=== PATIENT | female | born 1940 | race Caucasian/White ===

== ENCOUNTER 2019-02-14 23:37 | Emergency (ER) | payer MEDICARE, OTHER ==
[~2019-02-14] VITALS: Ht 152.4 cm; Wt 83.5 kg
[~2019-02-14 23:37] MED LIST: CHOL10002 PO; DARB200I; FEBU40TA; FISH OIL 1,2001 EACH; HYDACE5325; LEVSOD75; Lotrel 10-20 M1 EACH PO; OMEP20ER; PREG50; SODBIC650
[2019-02-14] MEDS ORDERED: OXYC5 PO (23:54)
[2019-02-14] MEDS ORDERED: Vitamin E600 UNIT PO (23:56)
[2019-02-14] MEDS ORDERED: CLON.1 PO (23:58)
[2019-02-15 00:18] LABS: Source, Urine Clean Catch
[2019-02-15 00:22] LABS: Bilirubin, Urine Neg (Neg); Blood, Urine 4+ (Neg); Glucose Qualitative, Urine Neg (Neg); Ketones, Urine Neg (Neg); Leukocyte Esterase, Urine 3+ (Neg); Nitrite, Urine Neg (Neg); Protein, Urine 3+ (Neg); Urobilinogen, Urine NORM (Normal)
[2019-02-15 00:39] LABS: Appearance, Urine Hazy (Clear); Bacteria Mod /hpf; Color, Urine Yellow (P-Yellow); Red Blood Cells, Urine Rare /hpf (0-2); Squamous Epithelial Cells Few /hpf (Few); White Blood Cells, Urine 50-100 /hpf (0-5)
[2019-02-15 00:44] LABS: BASOPHILS ABSOLUTE AUTO 0.04 K/mm3 (0.00-0.23); BASOPHILS PERCENT AUTO 0 % (0-2); EOSINOPHILS PERCENT AUTO 0 % (0-6); Hematocrit 32.2 % (33.0-51.0); Hemoglobin 10.2 g/dL (11.5-16.0); IMMATURE GRAN ABSOLUTE AUTO 0.13 K/mm3 (0.00-0.10); IMMATURE GRAN PERCENT AUTO 1 % (0-1); LYMPHOCYTES PERCENT AUTO 4 % (21-46); MONOCYTES ABSOLUTE AUTO 1.44 K/mm3 (0.16-1.47); MONOCYTES PERCENT AUTO 7 % (4-13); Mean Corpuscular HGB 29.7 pg (26.0-34.0); Mean Corpuscular HGB Conc 31.7 g/dL (31.5-36.5); Mean Corpuscular Volume 94 fL (80-100); NEUTROPHILS ABSOLUTE AUTO 17.34 K/mm3 (1.96-9.15); NEUTROPHILS PERCENT AUTO 88 % (41-73); Platelet Count 238 K/mm3 (150-400); RDW Coefficient Variation 15.9 % (11.7-14.2); RDW Standard Deviation 54.6 fL (35.1-46.3); Red Blood Cell Count 3.44 M/mm3 (3.80-5.20); White Blood Cell Count 19.65 K/mm3 (4.00-11.30)
[2019-02-15 01:02] LABS: Albumin, Blood 2.8 g/dL (3.4-5.0); Albumin/Globulin Ratio 0.7 (0.8-1.8); Bilirubin, Total 0.7 mg/dL (0.1-1.0); Bun/Creatinine Ratio 17.1 (12.0-20.0); Calcium, Blood 7.8 mg/dL (8.5-10.1); Creatinine, Blood 2.98 mg/dL (0.40-1.00); Globulin, Blood 4.2 g/dL (2.2-4.0); Potassium, Blood 4.6 mmol/L (3.5-5.5)
== END 2019-02-15 02:33 | disposition short-term general hospital (02) ==
LOC: ER 23:37
PROVIDERS: Emergency Medicine
DX: M54.5 Low back pain (principal); Z88.0 Allergy status to penicillin; Z88.2 Allergy status to sulfonamides; Z88.5 Allergy status to narcotic agent; Z88.8 Allergy status to other drugs, medicaments and biological substances; Z79.899 Other long term (current) drug therapy
CPT/HCPCS: 36415; 71046; 74176; 80053; 81001; 83605; 85025; 87040; 87086; 96374; 96375; 99284-25; J2405; J3010

== ENCOUNTER → 2019-06-21 | Outpatient (CLI) | payer MEDICARE, OTHER ==
[~2019-06-21] MED LIST changes: +ATORVASTATIN CA40 MG PO; +Bumetanide2 MG PO; +CALCIUM 600 +1 EA11 PO; -CHOL10002 PO; +CLON.1 PO; +COLCHICINE0.6 MG PO; +Calcitriol0.5 MCG PO; +GABA100 PO; +GABA300 PO; +LIDO700A20 TOP; +METPRE4DP PO; -OMEP20ER; +OMEP20ER PO; +OXYC5 PO; -SODBIC650; +SODBIC650 PO; +TUMS500 MG PO; +VITAMIN D325 MCG PO; +Vitamin E600 UNIT PO; +XARELTO10 MG PO; +XARELTO2.5 MG PO; +[UNRECOGNIZED DRUG - OTHER] PO
[2019-06-21 11:31] LABS: BASOPHILS ABSOLUTE AUTO 0.07 K/mm3 (0.00-0.23); BASOPHILS PERCENT AUTO 1 % (0-2); EOSINOPHILS ABSOLUTE AUTO 0.32 K/mm3 (0.00-0.68); EOSINOPHILS PERCENT AUTO 4 % (0-6); Hematocrit 34.6 % (33.0-51.0); Hemoglobin 10.7 g/dL (11.5-16.0); IMMATURE GRAN ABSOLUTE AUTO 0.01 K/mm3 (0.00-0.10); IMMATURE GRAN PERCENT AUTO 0 % (0-1); LYMPHOCYTES ABSOLUTE AUTO 1.77 K/mm3 (0.84-5.20); LYMPHOCYTES PERCENT AUTO 24 % (21-46); MONOCYTES ABSOLUTE AUTO 0.54 K/mm3 (0.16-1.47); MONOCYTES PERCENT AUTO 7 % (4-13); Mean Corpuscular HGB 28.5 pg (26.0-34.0); Mean Corpuscular HGB Conc 30.9 g/dL (31.5-36.5); Mean Corpuscular Volume 92 fL (80-100); Mean Platelet Volume 10.1 fL (9.1-12.4); NEUTROPHILS ABSOLUTE AUTO 4.81 K/mm3 (1.96-9.15); NEUTROPHILS PERCENT AUTO 64 % (41-73); Platelet Count 323 K/mm3 (150-400); RDW Coefficient Variation 15.2 % (11.7-14.2); RDW Standard Deviation 51.8 fL (35.1-46.3); Red Blood Cell Count 3.75 M/mm3 (3.80-5.20); White Blood Cell Count 7.52 K/mm3 (4.00-11.30)
== END ==
LOC: LAB SHORT 10:51 → LAB 10:51
PROVIDERS: Internal Medicine Hematology & Oncology
DX: N18.4 Chronic kidney disease, stage 4 (severe) (principal); D63.1 Anemia in chronic kidney disease
CPT/HCPCS: 85025

== ENCOUNTER 2019-07-04 16:46 | Inpatient (IN) | payer MEDICARE, OTHER ==
[~2019-07-04] VITALS: Ht 152.4 cm; Wt 76.7 kg
[~2019-07-04 16:46] MED LIST changes: -ATORVASTATIN CA40 MG PO; -Bumetanide2 MG PO; -CALCIUM 600 +1 EA11 PO; -CLON.1 PO; -COLCHICINE0.6 MG PO; -Calcitriol0.5 MCG PO; -GABA100 PO; -LIDO700A20 TOP; -METPRE4DP PO; -TUMS500 MG PO; -VITAMIN D325 MCG PO; -XARELTO10 MG PO; -XARELTO2.5 MG PO; -[UNRECOGNIZED DRUG - OTHER] PO
[2019-07-04 17:34] LABS: BASOPHILS ABSOLUTE AUTO 0.04 K/mm3 (0.00-0.23); BASOPHILS PERCENT AUTO 0 % (0-2); EOSINOPHILS PERCENT AUTO 0 % (0-6); Hematocrit 34.6 % (33.0-51.0); Hemoglobin 10.9 g/dL (11.5-16.0); IMMATURE GRAN ABSOLUTE AUTO 0.05 K/mm3 (0.00-0.10); IMMATURE GRAN PERCENT AUTO 0 % (0-1); LYMPHOCYTES ABSOLUTE AUTO 0.42 K/mm3 (0.84-5.20); LYMPHOCYTES PERCENT AUTO 3 % (21-46); MONOCYTES ABSOLUTE AUTO 0.39 K/mm3 (0.16-1.47); MONOCYTES PERCENT AUTO 2 % (4-13); Mean Corpuscular HGB 28.1 pg (26.0-34.0); Mean Corpuscular HGB Conc 31.5 g/dL (31.5-36.5); NEUTROPHILS ABSOLUTE AUTO 15.06 K/mm3 (1.96-9.15); NEUTROPHILS PERCENT AUTO 94 % (41-73); Platelet Count 352 K/mm3 (150-400); Red Blood Cell Count 3.88 M/mm3 (3.80-5.20); White Blood Cell Count 15.96 K/mm3 (4.00-11.30)
[2019-07-04 17:36] LABS: Mean Corpuscular Volume 89 fL (80-100)
[2019-07-04 17:53] LABS: Magnesium, Blood 1.8 mg/dL (1.6-2.4)
[2019-07-04 18:12] LABS: Albumin, Blood 2.4 g/dL (3.4-5.0); Albumin/Globulin Ratio 0.4 (0.8-1.8); Bilirubin, Total 0.5 mg/dL (0.1-1.0); Bun/Creatinine Ratio 14.6 (12.0-20.0); Calcium, Blood 5.8 mg/dL (8.5-10.1); Creatinine, Blood 2.87 mg/dL (0.40-1.00); Globulin, Blood 5.6 g/dL (2.2-4.0)
[2019-07-04] MEDS ORDERED: GABA100 PO (19:05)
[2019-07-04] MEDS ORDERED: CLON.1 PO (19:07)
[2019-07-04] MEDS ORDERED: VITAMIN D325 MCG PO (19:07)
[2019-07-04] MEDS ORDERED: TUMS500 MG PO (19:08)
[2019-07-04] MEDS ORDERED: XARELTO2.5 MG PO (19:08)
[2019-07-04] MEDS ORDERED: ATORVASTATIN CA40 MG PO (19:09)
[2019-07-04] MEDS ORDERED: Bumetanide2 MG PO ×2 (19:09→19:10)
[2019-07-04] MEDS ORDERED: LIDO700A20 TOP (19:12)
[2019-07-04] MEDS ORDERED: COLCHICINE0.6 MG PO (19:39)
[2019-07-04] MEDS ORDERED: METPRE4DP PO (19:40)
[2019-07-04] MEDS ORDERED: Calcitriol0.5 MCG PO (19:40)
[2019-07-04] MEDS ORDERED: [UNRECOGNIZED DRUG - OTHER] PO (22:40)
--- NOTE | 2019-07-05 00:26 | NUR ---
NURA NOTIFIED OF CURRENT MAG LEVEL AND CALCIUM LEVEL. PER NURA'S ORDERS PROCEED WITH 2230 ORDER OF IV CALCIUM, DC IV MAG, AND CHANGE CALCIUM SUPPLMENT TO [address] LYMAN ALSO NOTIFIED OF BLADDER SCAN AMOUNT OF 202. NO ADDITIONAL ORDERS GIVEN REGARDING BLADDER SCAN.
--- NOTE | 2019-07-05 04:27 | NUR ---
SHIFT SUMMARY PT ER ADMIT THIS SHIFT FOR HYPOCALCEMIA, PT HAS RECEIVED SEVERAL IVPB OF CALCIUM PER ORDERS. PT HAS DENIED PAIN SINCE ADMISSION, SHE HAS BEEN ASYMPTOMATIC. VITALS ARE STABLE. FAMILY AT BEDSIDE T/O THE NIGHT. DR. LYMAN CONSULTED AND HAS ROUNDED ON PT THIS SHIFT. AM LABS ORDERED FOR PT THIS SHIFT. NO ACUTE CHANGES SINCE ADMISSION. BED IN LOWEST POSITION, CALL LIGHT WITHIN REACH. WILL CONTINUE TO MONITOR AND REPORT TO MARCELO BOJORQUEZ.
[2019-07-05 05:14] LABS: Hematocrit 34.4 % (33.0-51.0); Hemoglobin 10.7 g/dL (11.5-16.0)
[2019-07-05 05:36] LABS: Albumin, Blood 2.3 g/dL (3.4-5.0); Anion Gap 11 mmol/L (6-16); Blood Urea Nitrogen 49 mg/dL (8-24); Bun/Creatinine Ratio 17.4 (12.0-20.0); CO2, Blood 21 mmol/L (21-32); Calcium, Blood 7.1 mg/dL (8.5-10.1); Chloride, Blood 100 mmol/L (98-108); Creatinine, Blood 2.81 mg/dL (0.40-1.00); Glomerular Filtration Rate 17 (60-); Glucose, Blood 122 mg/dL (70-99); Magnesium, Blood 2.1 mg/dL (1.6-2.4); Phosphorus, Blood 4.2 mg/dL (2.5-4.9); Sodium, Blood 132 mmol/L (136-145)
--- NOTE | 2019-07-05 14:43 | NUR ---
CALLED DR LYMAN PT IONIZED CALCIUM 0.95 NEW ORDER RECIEVED FOR 1G CALCIUM GLUCONATE NOW RECHECK IN THE AM.
--- NOTE | 2019-07-05 16:57 | NUR ---
CALLED DR REYES- PT DAUGHTER STATED THE PT UTILIZES A CPAP MACHINE AT NIGHT UNSURE OF THE HOME SETTINGS, AND THE PT REQUESTED TO USE A HOSPITAL CPAP FOR TONIGHT. PT HOPES TO GO HOME TOMORROW. ORDER RECIEVED FOR CPAP.
--- NOTE | 2019-07-05 17:00 | NUR ---
CALLED RT ABOUT NEW CPAP ORDER THEY ARE NOW AWARE AND WILL COME TO SET UP.
--- NOTE | 2019-07-05 18:48 | NUR ---
SHIFT SUMMARY- PT HAS RECIEVED 3G OF IV CALCIUM DURRING THE DAY TODAY LAST IONIZED CALCIUM WAS 0.95. NEXT IONIZED CALCIUM ORDERED WITH MORNING LABS TOMORROW. PLAN IS FOR PT TO DISCHARGE HOME TOMORROW. PT DAUGHTER AT THE BEDSIDE T/O THE DAY. DR LYMAN ON THE CASE. SPOKE TO DR LYMAN ABOUT THE PT ORDER FOR SOLUMEDROL IN A TITRATED DOSE FROM HOME THIS IS NOT ORDERED, SPOKE ABOUT THE STEROIDS EFFECT ON CALCIUM. PT TAKING THE SOLUMEDROL FOR GOUT PER DAUGHTER. PT HAS DENIED ANY GOUT PAIN AT THIS TIME, ONLY C/O PAIN HAS BEEN BILATERAL FEET NEUROPATHY PAIN, LAST MEDICATED AT 1800 WITH 5MG OXY. AFTER OXY DOSE THE PT SEEMS TO BREAK OUT IN A SWEAT, VITALS REMAIIN STABLE AND PER TELE THERE IS NO CHANGE IN RATE OR RYTHM, AND IT SEEMS TO PASS WITHIN 45 MINUTES TO AN HOUR.
[2019-07-06 05:04] LABS: Hematocrit 31.2 % (33.0-51.0); Mean Corpuscular HGB 28.2 pg (26.0-34.0); Mean Corpuscular HGB Conc 32.1 g/dL (31.5-36.5); Mean Corpuscular Volume 88 fL (80-100); Mean Platelet Volume 9.9 fL (9.1-12.4); Platelet Count 402 K/mm3 (150-400); RDW Coefficient Variation 14.6 % (11.7-14.2); RDW Standard Deviation 46.9 fL (35.1-46.3); Red Blood Cell Count 3.55 M/mm3 (3.80-5.20); White Blood Cell Count 9.47 K/mm3 (4.00-11.30)
[2019-07-06 05:20] LABS: Albumin, Blood 2.1 g/dL (3.4-5.0); Anion Gap 9 mmol/L (6-16); Blood Urea Nitrogen 62 mg/dL (8-24); Bun/Creatinine Ratio 21.2 (12.0-20.0); CO2, Blood 24 mmol/L (21-32); Chloride, Blood 100 mmol/L (98-108); Creatinine, Blood 2.92 mg/dL (0.40-1.00); Glomerular Filtration Rate 17 (60-); Glucose, Blood 102 mg/dL (70-99); Potassium, Blood 4.7 mmol/L (3.5-5.5); Sodium, Blood 133 mmol/L (136-145)
--- NOTE | 2019-07-06 05:36 | NUR ---
SHIFT SUMMARY PATIENT ALERT AND ORIENTED. SHE HAD NO COMPLAINTS OF PAIN OVERNIGHT. SHE SLEPT WITH HER CPAP ON AND REMAINS ON CONTINUOUS BIOX. HER TELE SHOWS HER HEART RHYTHM TO BE SINUS RHYTHM. IV PATENT AND FLUSHED. BED IN LOWEST POSITION WITH WHEELS LOCKED. CALL LIGHT AND BELONGINGS WITHIN REACH. REPORT GIVEN TO ONCOMING RN.
[2019-07-06] MEDS ORDERED: SODBIC650 PO (11:01)
[2019-07-06] MEDS ORDERED: CALCIUM 600 +1 EA11 PO (11:08)
--- NOTE | 2019-07-06 14:36 | NUR ---
PT DISCHARGED AT 1240 WITH DAUGHTER TO TRANSPORT. APPOINTMENTS SCHEDULED AND PAPERWORK REVIEWED WITH EDUCATIONAL MATERIAL. PT TOOK ALL PERSONAL BELININGS AND ESSORT WHEELCHAIRED PT OUT TO EXIT. PT AOX4 AND COOPERATIVE OF CARE TODAY.
[2019-07-18] MEDS ORDERED: XARELTO10 MG PO (10:14)
== END 2019-07-06 12:42 | disposition home or self-care (01) | DRG 641 ==
LOC: ER 16:46 → MEDS 16:47
PROVIDERS: Emergency Medicine; Internal Medicine; Internal Medicine Nephrology; ADMIT Family Medicine
DX: E83.51 Hypocalcemia (principal); N18.4 Chronic kidney disease, stage 4 (severe); I50.32 Chronic diastolic (congestive) heart failure; I13.0 Hypertensive heart and chronic kidney disease with heart failure and stage 1 through stage 4 chronic kidney disease, or unspecified chronic kidney disease; N17.9 Acute kidney failure, unspecified; E87.1 Hypo-osmolality and hyponatremia; M10.9 Gout, unspecified; G62.9 Polyneuropathy, unspecified; Z86.73 Personal history of transient ischemic attack (TIA), and cerebral infarction without residual deficits; K21.9 Gastro-esophageal reflux disease without esophagitis; E87.5 Hyperkalemia; E88.09 Other disorders of plasma-protein metabolism, not elsewhere classified; D64.9 Anemia, unspecified; E66.9 Obesity, unspecified; Z68.34 Body mass index [BMI] 34.0-34.9, adult; G47.33 Obstructive sleep apnea (adult) (pediatric); E55.9 Vitamin D deficiency, unspecified; D72.829 Elevated white blood cell count, unspecified; T50.995A Adverse effect of other drugs, medicaments and biological substances, initial encounter; Y92.9 Unspecified place or not applicable
CPT/HCPCS: 36415; 76770; 80053; 80069; 82306; 82330; 83735; 84100; 84550; 85014; 85018; 85025; 85027; 93005; 93010; 94660; 94762; 96365; 96372; 97116; 97161; 99283-25; 99284-25; G0378; J0610; J1170

== ENCOUNTER 2019-07-21 05:26 | Day surgery (SDC) | payer MEDICARE, OTHER ==
[~2019-07-21] VITALS: Ht 152.4 cm; Wt 75.0 kg
[~2019-07-21 05:26] MED LIST changes: +ATORVASTATIN CA40 MG PO; +Bumetanide2 MG PO; +CALCIUM 600 +1 EA11 PO; +CLON.1 PO; +COLCHICINE0.6 MG PO; +Calcitriol0.5 MCG PO; +GABA100 PO; +LIDO700A20 TOP; +METPRE4DP PO; +TUMS500 MG PO; +VITAMIN D325 MCG PO; +XARELTO10 MG PO; +XARELTO2.5 MG PO; +[UNRECOGNIZED DRUG - OTHER] PO
== END 2019-07-21 14:45 | disposition home or self-care (01) ==
LOC: ORSCSDS 05:26
PROVIDERS: Internal Medicine Gastroenterology
PROC: 0D757ZZ Dilation of Esophagus, Via Natural or Artificial Opening (ICD-10-PCS; principal; 2019-07-21 13:00)
PROC: 0DB58ZX Excision of Esophagus, Via Natural or Artificial Opening Endoscopic, Diagnostic (ICD-10-PCS; principal; 2019-07-21 13:00)
PROC: 0DB68ZX Excision of Stomach, Via Natural or Artificial Opening Endoscopic, Diagnostic (ICD-10-PCS; principal; 2019-07-21 13:00)
PROC: 0DJD8ZZ Inspection of Lower Intestinal Tract, Via Natural or Artificial Opening Endoscopic (ICD-10-PCS; principal; 2019-07-21 13:00)
DX: Z12.11 Encounter for screening for malignant neoplasm of colon (principal); Z86.010 Personal history of colon polyps; K57.30 Diverticulosis of large intestine without perforation or abscess without bleeding; R13.14 Dysphagia, pharyngoesophageal phase; K21.9 Gastro-esophageal reflux disease without esophagitis; K29.70 Gastritis, unspecified, without bleeding; K22.2 Esophageal obstruction; K44.9 Diaphragmatic hernia without obstruction or gangrene; G47.33 Obstructive sleep apnea (adult) (pediatric); I69.334 Monoplegia of upper limb following cerebral infarction affecting left non-dominant side; I48.91 Unspecified atrial fibrillation; Z79.01 Long term (current) use of anticoagulants; I10 Essential (primary) hypertension; N18.4 Chronic kidney disease, stage 4 (severe); Z79.899 Other long term (current) drug therapy; E83.51 Hypocalcemia
CPT/HCPCS: 43239; 43450; G0105; 87081; 88305; 88312; 88342; J2704; J7120

== ENCOUNTER → 2019-07-25 | Outpatient (CLI) | payer MEDICARE, OTHER ==
[2019-07-25 14:57] LABS: Anion Gap 6 mmol/L (6-16); Blood Urea Nitrogen 23 mg/dL (8-24); Bun/Creatinine Ratio 9.5 (12.0-20.0); CO2, Blood 27 mmol/L (21-32); Calcium, Blood 8.4 mg/dL (8.5-10.1); Chloride, Blood 101 mmol/L (98-108); Creatinine, Blood 2.43 mg/dL (0.40-1.00); Glomerular Filtration Rate 20 (60-); Glucose, Blood 86 mg/dL (70-99); Magnesium, Blood 1.7 mg/dL (1.6-2.4); Phosphorus, Blood 2.7 mg/dL (2.5-4.9); Potassium, Blood 4.6 mmol/L (3.5-5.5); Sodium, Blood 134 mmol/L (136-145)
== END | disposition home or self-care (01) ==
LOC: LAB 13:04 → LAB SHORT 13:04
PROVIDERS: Internal Medicine Nephrology
DX: N18.4 Chronic kidney disease, stage 4 (severe) (principal); D63.1 Anemia in chronic kidney disease
CPT/HCPCS: 80069; 83735; 85018

== ENCOUNTER → 2020-02-07 | Outpatient (CLI) | payer MEDICARE, OTHER ==
[~2020-02-07] MED LIST changes: +DOCUSATE SODIU1 EAC1 PO; +POLYETHYLENE G500 G1 PO; +VITAMIN D31000 UNIT PO; -VITAMIN D325 MCG PO; -XARELTO2.5 MG PO
== END | disposition home or self-care (01) ==
LOC: LAB DAV 08:30
DX: M25.50 Pain in unspecified joint (principal)
CPT/HCPCS: 84550

== ENCOUNTER 2020-03-27 10:42 | Day surgery (SDC) | payer MEDICARE, OTHER ==
[~2020-03-27] VITALS: Ht 152.4 cm; Wt 73.6 kg
--- NOTE | 2020-03-27 13:20 | NUR ---
AMBULATED TO BATHROOM. DR. ROBERTS HERE. SHORT STAY COMPLETED. SEDATION BY GISELE BOWLES RN.
--- NOTE | 2020-03-27 14:45 | NUR ---
TO RECOVERY ROOM VIA WHEELCHAIR. HEMATOMA RIGHT FOREARM. PULSE PRESENT.
--- NOTE | 2020-03-27 15:45 | NUR ---
AMBULATED TO BATHROOM. TOLERATED WELL. DRESSED FOR DISCHARGE.
--- NOTE | 2020-03-27 16:30 | NUR ---
DISCHARGE INSTRUCTIONS GIVEN WITH VERBAL AND WRITTEN UNDERSTANDING TO PATIENT AND DAUGHTER.
--- NOTE | 2020-03-27 16:32 | NUR ---
DISCHARGE INSTRUCTIONS GIVEN WITH VERBAL AND WRITTEN UNDERSTANDING.
--- NOTE | 2020-03-27 16:40 | NUR ---
IV REMOVED INTACT. 2X2,COBAN AND MANUAL PRESSURE APPLIED.
--- NOTE | 2020-03-27 16:45 | NUR ---
DISCHARGED HOME VIA WHEELCHAIR. DAUGHTER DRIVING.
== END 2020-03-27 16:40 | disposition home or self-care (01) ==
LOC: MHTC 10:42
DX: I12.0 Hypertensive chronic kidney disease with stage 5 chronic kidney disease or end stage renal disease (principal); E66.9 Obesity, unspecified; N18.6 End stage renal disease; Z88.5 Allergy status to narcotic agent; Z88.0 Allergy status to penicillin; Z88.2 Allergy status to sulfonamides; Z88.8 Allergy status to other drugs, medicaments and biological substances; Z88.1 Allergy status to other antibiotic agents; Z91.041 Radiographic dye allergy status; Z79.01 Long term (current) use of anticoagulants; Z79.899 Other long term (current) drug therapy
CPT/HCPCS: 64415; C1725; C1769; C1889; C1894; G2170; J1644; J2250; J3010; J7030

== ENCOUNTER 2020-04-24 11:16 | Observation (INO) | payer MEDICARE, OTHER ==
[~2020-04-24] VITALS: Ht 152.4 cm; Wt 74.0 kg
[~2020-04-24 11:16] MED LIST changes: +GRALISE600 MG PO; +XARELTO20 MG PO
--- NOTE | 2020-04-24 16:51 | NUR ---
PATIENT ARRIVED FROM ELIGIBILITY MANAGER. A&O. REPORT FROM RAYMUNDO. O2 PLACED AT 2L/NC. RIGHT RADIAL SITE STABLE, SOFT AND NONTENDER. TR BAND AND ARM BOARD IN PLACE
[2020-04-24 16:53] LABS: BASOPHILS ABSOLUTE AUTO 0.07 K/mm3 (0.00-0.23); BASOPHILS PERCENT AUTO 1 % (0-2); EOSINOPHILS ABSOLUTE AUTO 0.28 K/mm3 (0.00-0.68); EOSINOPHILS PERCENT AUTO 5 % (0-6); Hematocrit 38.9 % (33.0-51.0); Hemoglobin 12.5 g/dL (11.5-16.0); IMMATURE GRAN ABSOLUTE AUTO 0.02 K/mm3 (0.00-0.10); IMMATURE GRAN PERCENT AUTO 0 % (0-1); LYMPHOCYTES ABSOLUTE AUTO 2.34 K/mm3 (0.84-5.20); LYMPHOCYTES PERCENT AUTO 37 % (21-46); MONOCYTES ABSOLUTE AUTO 0.48 K/mm3 (0.16-1.47); MONOCYTES PERCENT AUTO 8 % (4-13); Mean Corpuscular HGB 29.5 pg (26.0-34.0); Mean Corpuscular HGB Conc 32.1 g/dL (31.5-36.5); Mean Corpuscular Volume 92 fL (80-100); NEUTROPHILS ABSOLUTE AUTO 3.08 K/mm3 (1.96-9.15); NEUTROPHILS PERCENT AUTO 49 % (41-73); Platelet Count 145 K/mm3 (150-400); RDW Coefficient Variation 13.6 % (11.7-14.2); RDW Standard Deviation 45.9 fL (35.1-46.3); Red Blood Cell Count 4.24 M/mm3 (3.80-5.20); White Blood Cell Count 6.27 K/mm3 (4.00-11.30)
[2020-04-24 17:01] LABS: Bun/Creatinine Ratio 5.9 (12.0-20.0); Calcium, Blood 8.4 mg/dL (8.5-10.1); Creatinine, Blood 2.05 mg/dL (0.40-1.00); Potassium, Blood 4.4 mmol/L (3.5-5.5)
--- NOTE | 2020-04-24 17:26 | NUR ---
PT ARRIVAL/SHIFT SUMMARY: PT ARRIVED VIA BED AND TNX'D SELF TO BED WITH MINIMAL ASSIST. PT ALERT AND ORIENTED X3. LUNGS ARE CLEAR T/O BILATERALLY. PT'S DAUGHTER AT THE BEDSIDE AND BROUGHT IN PT'S HOME CPAP. WILL HAVE RT LOOK OVER CPAP AND SET UP. HR REGULAR, SR-70'S RANGE. BP'S STABLE AT THIS TIME SEE TRENDS. PT REPORTS SBP'S NORMALLY RANGE 120-140'S/. PERMA CATH IN RT CHEST WALL. PT REPORTS SHE NORMALLY HAS HD M/W/F'S AND DID NOT HAVE TX TODAY. 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 FISTULA WITH GOOD BRUIT AND THRILL. RT TR BAND IN PLACE WITH 11 MLS IN BAND. WILL START DEFLATING CUFF SHORTLY. CLARK DRSG IN PLACE TO RT UA WITH MIN-MOD UA SWELLING R/T HEMATOMA. ARM IS STILL SOFT, PT REPORTS MILD TENDERNESS OVER DRSG SITE. BLOOD ON CLARK DRSG OUTLINED. UA GENTLY CLEANSED OF BLOOD FROM PROCEDURE. ABD SOFT/ROUND/NON-TENDER. RENAL DIET ORDERED FOR PT. NO VOID YET. EDUCATED PT WE COULD GET HER UP TO A BSC FOR VOIDING, WHEN NECESSARY.
--- NOTE | 2020-04-24 18:05 | NUR ---
ORDERED RENAL TRAY NOW FOR PT TO RECEIVE HOT FOOD.
--- NOTE | 2020-04-24 19:00 | NUR ---
ASSUMED CARE NOTE: ASSUMED CARE OF PT AT 1900, RECEVIED REPORT FROM ELIDA BOJORQUEZ. PT ALERT AND ORIENTEDX4. ABLE TO COMMUNICATE NEEDS. PT IS ON ROOM AIR WITH SPO2 AT IN THE HIGH 90'S. RT MADE AWARE OF HOME CPAP, WILL BE IN SHORTLY TO SET-UP. PT IS IN NSR WITH HR IN THE 70'S. PT DENIES ANY PAIN/NAUSEA/DIZZINESS AT THIS TIME. BP STABLE. RIGHT UPPER ARM SURGIAL SITE , SLIGHT OZZING TO DRESSING, UPPER ARM IS BRUSIED, SWELLING NOTED (38cm) PT C/O TENDERNESS TO SITE. RIGHT RADIAL ACCESS SITE HAS TR BAND IN PLACE, EXTREMITY PINK, WARM, 2+ PULSE, PT DENIES ANY NUMBNESS AND TINGLING. DAUGHTER AT BEDSIDE, WILL CONTINUE TO MONITOR PT T/O SHIFT.
--- NOTE | 2020-04-24 19:06 | NUR ---
REPORTED OFF TO MARYELLEN GODFREY WHOM IS ASSUMING CARE OF THIS PT. WENT TO BEDSIDE AND VIEWED TR BAND AND RT UA.
--- NOTE | 2020-04-24 21:00 | NUR ---
UPDATE: RIGHT UPPER ARM SURGICAL SITE, REBLEED PATIENT WAS SITTING UP ON THE COMMODE. PT DID NOT STRAIN OR USE ARM WITH ANY FORCE WHEN THE BLEEDING OCCURED. MANUAL PRESSURE HELD FOR 3 MINUTES. NEW NON-ADHERENT PAD PLACED OVER STERI-STRIPS (WHICH WERE NOT REMOVED) AND TEGARDERM. PT REMINDED TO KEEP ARM ELEVATED AND USE CALL LIGHT IF REBLEED OCCURS. DAUGHTER AT BEDSIDE.
[2020-04-25 04:14] LABS: Hematocrit 33.9 % (33.0-51.0); Hemoglobin 10.6 g/dL (11.5-16.0); Mean Corpuscular HGB Conc 31.3 g/dL (31.5-36.5); Mean Corpuscular Volume 93 fL (80-100); Mean Platelet Volume 10.3 fL (9.1-12.4); Platelet Count 189 K/mm3 (150-400); RDW Coefficient Variation 13.4 % (11.7-14.2); RDW Standard Deviation 45.6 fL (35.1-46.3); Red Blood Cell Count 3.66 M/mm3 (3.80-5.20); White Blood Cell Count 7.05 K/mm3 (4.00-11.30)
[2020-04-25 04:30] LABS: Albumin, Blood 2.8 g/dL (3.4-5.0); Anion Gap 6 mmol/L (6-16); Blood Urea Nitrogen 22 mg/dL (8-24); Bun/Creatinine Ratio 7.5 (12.0-20.0); CO2, Blood 30 mmol/L (21-32); Calcium, Blood 8.7 mg/dL (8.5-10.1); Chloride, Blood 102 mmol/L (98-108); Creatinine, Blood 2.93 mg/dL (0.40-1.00); Glomerular Filtration Rate 16 (60-); Glucose, Blood 92 mg/dL (70-99); Phosphorus, Blood 3.7 mg/dL (2.5-4.9); Potassium, Blood 4.2 mmol/L (3.5-5.5); Sodium, Blood 138 mmol/L (136-145)
--- NOTE | 2020-04-25 11:27 | NUR ---
PT UPDATE: PT SLEEPING AT THIS TIME AND APPEARS COMFORTABLE.
--- NOTE | 2020-04-25 15:21 | NUR ---
PT UPDATE: PT OOB TO BSC FOR BM WITH HEATHER ROBBINS. PT BATHED, LINENS CHANGED AND PT REMAINED OUT TO RECLINER PER REQUEST. PT SET UP FOR ORAL CARE AND MEDICATED FOR CONTINUED NEUROPATHIC PAIN IN THE BILAT LE'S AND RT UA R/T HEMATOMA.
--- NOTE | 2020-04-25 16:37 | NUR ---
DR ROBERTS IN TO REASSESS: PT REPORTS FEELING UNCOMFORTABLE WITH GOING HOME TODAY. PT WILL CONTINUE TO BE OBSERVED OVER NIGHT, PCU STATUS, WITH PROBABLE DISCHARGE HOME TOMORROW.
--- NOTE | 2020-04-25 16:38 | NUR ---
SHIFT SUMMARY: PT'S HAS CONTINUED C/O RT UA PAIN R/T HEMATOMA AT AV FISTULA SITE. ECCHYMOSIS/OOZING/ARM CIRCUMFERENCE UNCHANGED T/O SHIFT. PT REMAINS OUT OF BED TO CHAIR AFTER BATHING AT THE BEDIDE.
--- NOTE | 2020-04-25 17:24 | NUR ---
Provided prayer and encouragement to this grace woman. Aruna has a strong leon. She feels well loved and supported by her family and tells me she is determined to get better lawanda. She has a positive spirit and was appreciative of visit. No fears presented. She was very complimentary of nursing. Credentialing Assistant services will remain available.
--- NOTE | 2020-04-25 19:00 | NUR ---
REPORTED OFF TO MARYELLEN NIELSON WHOM IS ASSUMING CARE OF THIS PT. LOOKED AT RT UPPER ARM, WHICH HAS BEEN UNCHANGED T/O SHIFT.
--- NOTE | 2020-04-25 20:00 | NUR ---
ASSUMED CARE OF PT AT 1915. REPORT RECEIVED AT BEDSIDE. ASSESSED RIGHT ARM FISTULA SITE WITH OFFGOING RN. NO CHANGE TO APPEARANCE AND ASSESSMENT PER OFFGOING RN. PT'S DAUGHTER IN ROOM. TEACHING DONE ON FISTULA AND WHAT TO EXPECT WHEN DISCHARGED HOME CONCERNING BRUISING AND TENDERNESS. ALLOWED FOR QUESTIONING. WILL REVIEW CHART AND PLAN OF CARE FOR THIS PT.
--- NOTE | 2020-04-26 01:05 | NUR ---
PT ABLE TO MOVE ABOUT IN BED ON HER OWN. HAVE ASSISTED SOME WITH POISITONING SHE REQUIRES. PT KEEPS RIGHT ARM ON PILLOWS. NO CHANGES TO NOTE IN RIGHT UPPER ARM ASSESSMENT. VSS. WILL CONTINUE TO MONITOR.
[2020-04-26 03:24] LABS: Hematocrit 35.1 % (33.0-51.0); Hemoglobin 11.4 g/dL (11.5-16.0)
[2020-04-26 03:39] LABS: Albumin, Blood 2.9 g/dL (3.4-5.0); Anion Gap 6 mmol/L (6-16); Blood Urea Nitrogen 35 mg/dL (8-24); CO2, Blood 27 mmol/L (21-32); Calcium, Blood 9.2 mg/dL (8.5-10.1); Chloride, Blood 104 mmol/L (98-108); Creatinine, Blood 3.87 mg/dL (0.40-1.00); Glomerular Filtration Rate 12 (60-); Glucose, Blood 98 mg/dL (70-99); Magnesium, Blood 2.1 mg/dL (1.6-2.4); Potassium, Blood 4.2 mmol/L (3.5-5.5); Sodium, Blood 137 mmol/L (136-145)
--- NOTE | 2020-04-26 06:28 | NUR ---
PT'S RIGHT UPPER ARM MEASURES AT 41 CM. GOOD DISTAL CMS CHECKS. NO HEMATOMA OR OOZING AT RIGHT RADIAL ACCESS. SOME SHADOW DRAINAGE ON DRESSING RIGHT UPPER ARM OVER NEW AV SHUNT. PT HAS BEEN UP SEVERAL TIMES TO COMMODE WHEREAS SHE VOIDS Q.S. PT HAS BEEN OFFERED PAIN MEDICATION FOR DISCOMFORT AT AV SITE. PT REFUSES OFFER. HAVE OFFERED AND DONE TEACHING ON ICE PACK TO SITE. PT STATES THAT SHE WOULD USE ICE PACK IN AM. SHE STATES THAT SHE TENDS TO BE COLD AT NIGHT AND BELIEVES THAT THIS WOULD AFFECT HER SLEEP. WILL CONTINUE TO MONITOR PT, AND WILL REPORT OFF TO ONCOMING RN.
--- NOTE | 2020-04-26 07:38 | NUR ---
ASSUMED CARE: RECEIVED REPORT FROM ROSIE RN AT BEDSIDE. PT LYING IN BED WAKES TO STAFF ENTERING THE ROOM. DAUGHTER IS AT BEDSIDE LYING IN A RECLINER. NO ACUTE DISTRESS NOTED. ASSESSED FISTULA SITE AND RADIAL SITE, WILL CONTINUE TO ASSESS FOR CHANGES. DISCHARGE ORDERS NOTED IN THE CHART, BUT AWAITING PT TO GO FOR DIALYSIS THIS MORNING PRIOR TO DISCHARGE.
--- NOTE | 2020-04-26 09:00 | NUR ---
DIALYSIS: PT DOWN TO DIALYSIS BY BED AT THIS TIME
--- NOTE | 2020-04-26 11:50 | NUR ---
PT RETURNED FROM DIALYSIS.
[2020-04-26] MEDS ORDERED: DOXY100 PO (13:17)
--- NOTE | 2020-04-26 13:35 | NUR ---
REVIEWED DISCHARGE INSTRUCTIONS WITH PT AND HER DAUGHTER. DISCUSSED MEDICATIONS AND TO RESTART XERELTO ON 04/27/20. IV DISCONTINUED. DAUGHTER ASSISTING PT WITH GETTING DRESSED. WILL ASSIST PT AND HER DAUGHTER OUT OF THE UNIT.
== END 2020-04-26 13:45 | disposition home or self-care (01) ==
LOC: MHTC 11:16 → ICUE 11:16 → MHTC 17:59 → ICUE 04-26 13:45
PROVIDERS: Internal Medicine Nephrology; Radiology Diagnostic Radiology; ADMIT Internal Medicine
DX: T82.838A Hemorrhage due to vascular prosthetic devices, implants and grafts, initial encounter (principal); I13.2 Hypertensive heart and chronic kidney disease with heart failure and with stage 5 chronic kidney disease, or end stage renal disease; N18.6 End stage renal disease; I50.32 Chronic diastolic (congestive) heart failure; D63.1 Anemia in chronic kidney disease; I95.9 Hypotension, unspecified; N25.81 Secondary hyperparathyroidism of renal origin; I48.91 Unspecified atrial fibrillation; E03.9 Hypothyroidism, unspecified; E87.1 Hypo-osmolality and hyponatremia; K21.9 Gastro-esophageal reflux disease without esophagitis; D46.9 Myelodysplastic syndrome, unspecified; G47.30 Sleep apnea, unspecified; G62.9 Polyneuropathy, unspecified; I69.954 Hemiplegia and hemiparesis following unspecified cerebrovascular disease affecting left non-dominant side; M10.9 Gout, unspecified; Z90.710 Acquired absence of both cervix and uterus; Z99.2 Dependence on renal dialysis; Z88.1 Allergy status to other antibiotic agents; Z88.2 Allergy status to sulfonamides; Z88.5 Allergy status to narcotic agent; Z88.6 Allergy status to analgesic agent; Z88.8 Allergy status to other drugs, medicaments and biological substances; Z91.041 Radiographic dye allergy status; Z79.01 Long term (current) use of anticoagulants; Z79.899 Other long term (current) drug therapy; Z23 Encounter for immunization; Y83.2 Surgical operation with anastomosis, bypass or graft as the cause of abnormal reaction of the patient, or of later complication, without mention of misadventure at the time of the procedure
CPT/HCPCS: 36415; 76937; 80048; 80069; 83735; 85014; 85018; 85025; 85027; 86850; 86900; 86901; 99152; 99153; C1725; C1769; C1887; C1894; J0690; J1644; J2250; J3010; J7030; Q9967

== ENCOUNTER 2020-08-15 06:02 | Day surgery (SDC) | payer MEDICARE, OTHER ==
[~2020-08-15] VITALS: Ht 152.4 cm; Wt 75.0 kg
[~2020-08-15 06:02] MED LIST changes: +CALCITRIOL0.5 MC1 PO; +DOXY100 PO; +VITAMIN D31000 UNI1 PO
--- NOTE | 2020-08-15 11:00 | NUR ---
PT VANCOMYCIN GTT COMPLETED. PT RESTING COMFORFTABLY. NADN. VSS. DENIES NEEDS. PT ABDMONIAL SITE REMAINS STABLE/ CLEAR
--- NOTE | 2020-08-15 11:50 | NUR ---
PD SITE SOFT NON-TENDER WITH NO HEMATOMA, DIME-SIZED TRACT OOZING OTHERWISE NO BLEEDING AND INTACT DRESSINGS. 24 G IV DISCONTINUED FROM LEFT FOREARM WITH INTACT CANNULA. PT DRESSED AND AMBULATED TO TO VOID. PT ESCORTED OUT VIA WHEELCHAIR ESCORTED.
== END 2020-08-15 11:40 | disposition home or self-care (01) ==
LOC: MHTC 06:02
DX: I12.0 Hypertensive chronic kidney disease with stage 5 chronic kidney disease or end stage renal disease (principal); N18.6 End stage renal disease; G47.30 Sleep apnea, unspecified; G62.9 Polyneuropathy, unspecified; Z88.1 Allergy status to other antibiotic agents; Z88.2 Allergy status to sulfonamides; Z88.5 Allergy status to narcotic agent; Z88.6 Allergy status to analgesic agent; Z88.8 Allergy status to other drugs, medicaments and biological substances; Z91.041 Radiographic dye allergy status; Z79.899 Other long term (current) drug therapy; Z79.01 Long term (current) use of anticoagulants
CPT/HCPCS: 49418; 76937; 99152; 99153; C1750; C1769; C1887; C1894; J1200; J1644; J1720; J2250; J3010; J3370; J7030; J7040; Q9967

== ENCOUNTER 2021-07-15 19:26 | Emergency (ER) | payer MEDICARE, OTHER ==
[~2021-07-15] VITALS: Ht 152.4 cm; Wt 71.2 kg
[2021-07-15] MEDS ORDERED: GABA300 PO (21:11)
[2021-07-15] MEDS ORDERED: CLON.5 PO (21:13)
[2021-07-15] MEDS ORDERED: [UNRECOGNIZED DRUG - OTHER] PO (21:15)
[2021-07-15] MEDS ORDERED: PRORENAL PO (21:15)
[2021-07-15] MEDS ORDERED: MEGESTROL ACETA PO (21:16)
[2021-07-15] MEDS ORDERED: MIDO5 PO (21:17)
[2021-07-15 22:35] LABS: BASOPHILS ABSOLUTE AUTO 0.05 K/mm3 (0.00-0.23); BASOPHILS PERCENT AUTO 1 % (0-2); EOSINOPHILS ABSOLUTE AUTO 0.23 K/mm3 (0.00-0.68); EOSINOPHILS PERCENT AUTO 2 % (0-6); Hematocrit 30.8 % (33.0-51.0); Hemoglobin 10.2 g/dL (11.5-16.0); IMMATURE GRAN ABSOLUTE AUTO 0.03 K/mm3 (0.00-0.10); IMMATURE GRAN PERCENT AUTO 0 % (0-1); LYMPHOCYTES ABSOLUTE AUTO 1.65 K/mm3 (0.84-5.20); LYMPHOCYTES PERCENT AUTO 16 % (21-46); MONOCYTES ABSOLUTE AUTO 0.86 K/mm3 (0.16-1.47); MONOCYTES PERCENT AUTO 9 % (4-13); Mean Corpuscular HGB Conc 33.1 g/dL (31.5-36.5); Mean Corpuscular Volume 94 fL (80-100); Mean Platelet Volume 10.2 fL (9.1-12.4); NEUTROPHILS ABSOLUTE AUTO 7.29 K/mm3 (1.96-9.15); NEUTROPHILS PERCENT AUTO 72 % (41-73); Platelet Count 264 K/mm3 (150-400); RDW Coefficient Variation 13.7 % (11.7-14.2); RDW Standard Deviation 46.7 fL (35.1-46.3); Red Blood Cell Count 3.29 M/mm3 (3.80-5.20); White Blood Cell Count 10.11 K/mm3 (4.00-11.30)
[2021-07-15 22:52] LABS: Albumin, Blood 2.3 g/dL (3.4-5.0); Albumin/Globulin Ratio 0.5 (0.8-1.8); Bilirubin, Total 0.5 mg/dL (0.1-1.0); Bun/Creatinine Ratio 8.4 (12.0-20.0); Calcium, Blood 8.5 mg/dL (8.5-10.1); Creatinine, Blood 7.4 mg/dL (0.40-1.00); Globulin, Blood 4.5 g/dL (2.2-4.0); Magnesium, Blood 1.4 mg/dL (1.6-2.4); Potassium, Blood 3.5 mmol/L (3.5-5.5); Total Protein, Blood 6.8 g/dL (6.4-8.2)
== END 2021-07-16 00:50 | disposition home or self-care (01) ==
LOC: ER 19:26
PROVIDERS: Physician Assistant
DX: R42 Dizziness and giddiness (principal); I12.9 Hypertensive chronic kidney disease with stage 1 through stage 4 chronic kidney disease, or unspecified chronic kidney disease; N18.4 Chronic kidney disease, stage 4 (severe); K21.9 Gastro-esophageal reflux disease without esophagitis; Z79.899 Other long term (current) drug therapy; Z88.2 Allergy status to sulfonamides; Z88.5 Allergy status to narcotic agent
CPT/HCPCS: 36415; 80053; 83735; 85025; 93005; 93010; 99284-25; J3475

== ENCOUNTER 2021-07-21 10:43 | Inpatient (IN) | payer MEDICARE, OTHER ==
[~2021-07-21] VITALS: Ht 165.1 cm; Wt 63.1 kg
[~2021-07-21 10:43] MED LIST changes: +CLON.5 PO; +MEGESTROL ACETA PO; +MIDO5 PO; +PRORENAL PO; +[UNRECOGNIZED DRUG - OTHER] PO
[2021-07-21 11:25] LABS: Calcium, Ionized (POC) 0.84 mmol/L (1.10-1.46); Chloride (POC) 97 mmol/L (98-108); Creatinine (POC) 9.2 mg/dL (0.6-1.0); Glucose (ISTAT POC) 151 mg/dL (70-99); Hemoglobin (POC) 12.2 g/dL (12.0-16.0); Potassium (POC) 2.9 mmol/L (3.5-5.5); Sodium (POC) 134 mmol/L (135-148); Total CO2 (POC) 21 mmol/L (21-32)
[2021-07-21 12:44] LABS: BASOPHILS ABSOLUTE AUTO 0.12 K/mm3 (0.00-0.23); BASOPHILS PERCENT AUTO 1 % (0-2); EOSINOPHILS ABSOLUTE AUTO 0.33 K/mm3 (0.00-0.68); EOSINOPHILS PERCENT AUTO 3 % (0-6); Hematocrit 33.3 % (33.0-51.0); Hemoglobin 11.1 g/dL (11.5-16.0); IMMATURE GRAN ABSOLUTE AUTO 0.05 K/mm3 (0.00-0.10); IMMATURE GRAN PERCENT AUTO 0 % (0-1); LYMPHOCYTES ABSOLUTE AUTO 2.23 K/mm3 (0.84-5.20); LYMPHOCYTES PERCENT AUTO 17 % (21-46); MONOCYTES ABSOLUTE AUTO 0.53 K/mm3 (0.16-1.47); MONOCYTES PERCENT AUTO 4 % (4-13); Mean Corpuscular HGB 31.3 pg (26.0-34.0); Mean Corpuscular HGB Conc 33.3 g/dL (31.5-36.5); Mean Corpuscular Volume 94 fL (80-100); Mean Platelet Volume 11.9 fL (9.1-12.4); NEUTROPHILS ABSOLUTE AUTO 9.52 K/mm3 (1.96-9.15); NEUTROPHILS PERCENT AUTO 75 % (41-73); Platelet Count 306 K/mm3 (150-400); RDW Coefficient Variation 13.7 % (11.7-14.2); RDW Standard Deviation 46.7 fL (35.1-46.3); Red Blood Cell Count 3.55 M/mm3 (3.80-5.20); White Blood Cell Count 12.78 K/mm3 (4.00-11.30)
[2021-07-21 13:29] LABS: Albumin, Blood 3.1 g/dL (3.4-5.0); Albumin/Globulin Ratio 0.8 (0.8-1.8); Bilirubin, Total 0.6 mg/dL (0.1-1.0); Bun/Creatinine Ratio 7.7 (12.0-20.0); Calcium, Blood 8.1 mg/dL (8.5-10.1); Creatinine, Blood 8.81 mg/dL (0.40-1.00); Potassium, Blood 3.1 mmol/L (3.5-5.5); Total Protein, Blood 7.1 g/dL (6.4-8.2)
--- NOTE | 2021-07-21 15:00 | NUR ---
PT ARRIVED TO ROOM 330 FROM ER VIA GURNEY, SLIDER SHEET USED TO ASSIST TRANSFER TO BED, SHE TOLERATED WELL. LAC IV INFILTRATE ON ARRIVAL. IV REMOVED AND A WARM COMPRESS APPLIED. [place]Y REPORTS FEELING BETTER. CALL WILSON IN REACH AND BED IN LOWEST POSITION. DAUGHTER TYSON ACCOMPAINED PT. PT DENIES PAIN/DISCOMFORT AT THIS TIME. BREE BOJORQUEZ CALLED FOR POWER GLIDE PLACEMENT. WILL CONTINUE TO MONITOR
--- NOTE | 2021-07-21 18:27 | NUR ---
PT SLEEPING AT THIS TIME, NO S/S OF DISTRESS, DAUGHTER TO ROOM WITH PT'S PD MACHINE AND WILL SPEND THE NIGHT. NO CHANGES SINCE ARRIVAL TO ROOM. WILL CONTINUE TO MONITOR AND REPORT TO ONCOMING RN
--- NOTE | 2021-07-21 20:37 | NUR ---
DIALYSIS - PD PT CONNECTED TO 2- 6 L 1.5 % DEXTROSE DIANEAL. [id number] TOTAL, 1000ML LAST FILL, 2000ML DWELL VOLUME. 10HR TX. 5 EXCHANGES, 1HR 33 MIN DWELL TIME. SITE CLEAR, FLUID CLEAR. CONNECTED AT 2014. DAUGHTER WITH PT.
--- NOTE | 2021-07-22 03:48 | NUR ---
SHIFT SUMMARY ADMITTED FOR SEIZURES. FULL CODE. SHE IS ON PERITONEAL DIALYSIS. PLAN IS TO ESTABLISH HD ACCESS EVENTUALLY AND POSSIBLE SNF PLACEMENT. TELEMETRY: NSR @ 94 BPM. SHE HAS A POWERGLIDE IN E. DR LYMAN IS RENAL CONSULT. MAGNESIUM GIVEN THIS SHIFT. K+ GIVEN ON PREVIOUS SHIFT. KEPPRA GIVEN THIS SHIFT. NS INFUSING @ 50 ML/HR. SHE IS ON XARELTO. 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
[2021-07-22 05:02] LABS: BASOPHILS ABSOLUTE AUTO 0.08 K/mm3 (0.00-0.23); BASOPHILS PERCENT AUTO 1 % (0-2); EOSINOPHILS PERCENT AUTO 3 % (0-6); Hematocrit 26.3 % (33.0-51.0); Hemoglobin 8.8 g/dL (11.5-16.0); IMMATURE GRAN ABSOLUTE AUTO 0.06 K/mm3 (0.00-0.10); IMMATURE GRAN PERCENT AUTO 1 % (0-1); LYMPHOCYTES ABSOLUTE AUTO 1.05 K/mm3 (0.84-5.20); LYMPHOCYTES PERCENT AUTO 9 % (21-46); MONOCYTES ABSOLUTE AUTO 0.67 K/mm3 (0.16-1.47); MONOCYTES PERCENT AUTO 6 % (4-13); Mean Corpuscular HGB 31.1 pg (26.0-34.0); Mean Corpuscular HGB Conc 33.5 g/dL (31.5-36.5); Mean Corpuscular Volume 93 fL (80-100); NEUTROPHILS ABSOLUTE AUTO 9.48 K/mm3 (1.96-9.15); NEUTROPHILS PERCENT AUTO 81 % (41-73); Platelet Count 246 K/mm3 (150-400); RDW Coefficient Variation 13.8 % (11.7-14.2); RDW Standard Deviation 46.5 fL (35.1-46.3); Red Blood Cell Count 2.83 M/mm3 (3.80-5.20); White Blood Cell Count 11.64 K/mm3 (4.00-11.30)
[2021-07-22 06:03] LABS: Magnesium, Blood 1.8 mg/dL (1.6-2.4)
[2021-07-22 06:23] LABS: Albumin, Blood 2.3 g/dL (3.4-5.0); Anion Gap 14 mmol/L (6-16); Blood Urea Nitrogen 61 mg/dL (8-24); Bun/Creatinine Ratio 7.5 (12.0-20.0); CO2, Blood 23 mmol/L (21-32); Calcium, Blood 7.7 mg/dL (8.5-10.1); Chloride, Blood 102 mmol/L (98-108); Creatinine, Blood 8.15 mg/dL (0.40-1.00); Glomerular Filtration Rate 5 (60-); Glucose, Blood 122 mg/dL (70-99); Phosphorus, Blood 4.1 mg/dL (2.5-4.9); Potassium, Blood 3.5 mmol/L (3.5-5.5); Sodium, Blood 139 mmol/L (136-145)
--- NOTE | 2021-07-22 07:15 | NUR ---
[facility] THERAPY COMPLETE PRESCRIBED. PATIENT LAYING IN BED WITHOUT COMPLAINT. ALERT / ORIENTED. DAUGHTER AT BEDSIDE. PATIENT DISCONNECTED AND CAPPED. CYCLER STRIPPED AND CLEANED. DR LYMAN CONSULTED VIA PHONE FOR NEW ORDERS / PLAN OF CARE.
--- NOTE | 2021-07-22 16:19 | NUR ---
patient gave verbal concent for me to give medication.
[2021-07-22 17:35] LABS: Thyroid Stimulating Hormone 2.03 uIU/mL (0.360-4.800)
--- NOTE | 2021-07-22 18:20 | NUR ---
PATIENT IS ALERT AND ORIENTED AND COOPERATIVE WITH CARE. SHE IS WEAK. SHE BECOMES DIZZY AND LIGHTHEADED WHEN SITTING UP OR LYING DOWN. ORTHOSTATIC VITALS TAKEN THIS EVENING, PATIENT WAS UNABLE TO STAND DUE TO BEING DIZZY. PERITONEAL DIALYSIS HAS BEEN STARTED BY THE BEAD MAKER. THE PATIENT'S DAUGHTER IS AT THE BEDSIDE. PATIENT C/O LEG PAIN AND RESTLESSNESS, DR. GARCIA RESUMED HOME GABAPENTIN. PATIENT'S DAUGHTER ASSISTS WITH MOST OF HER CARE INCLUDING FEEDING. MRI SCREEN FORM SENT THIS EVEING. WILL CONTINUE TO MONITOR
--- NOTE | 2021-07-22 18:53 | NUR ---
DIALYSIS - PD WHEN I CAME IN THEY WERE TRYING TO SEE IF PT COULD STAND FOR BP. SHE BECAME DIZZY WHILE SITTING UP ON THE EDGE OF THE BED. THEY HAD LAY HER BACK DOWN. PT SET UP WITH 10 HR TX, 5 EXCHANGES, 1000 ML LAST FILL, 2000 ML DWELL VOLUME. SITE CLEAR.
--- NOTE | 2021-07-23 04:04 | NUR ---
SHIFT SUMMARY ADMITTED FOR SEIZURE VS. SYNCOPE. FULL CODE. SHE IS A PERITONEAL DIALYSIS PT. DR. LYMAN IS CONSULT. 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 SHE IS VERY WEAK AND WITHDRAWN. HER DAUGHTER TYSON IS PRESENT IN ROOM. CHIKI DOLL IS SCHEDULED. TELEMETRY: NSR @ 92 BPM. POSSIBLE MRI OF THE HEAD TODAY - UNLESS PREVIOUS BACK SURGERIES PREVENT THIS TEST.
[2021-07-23 06:24] LABS: Hematocrit 24.7 % (33.0-51.0); Hemoglobin 8.3 g/dL (11.5-16.0)
[2021-07-23 06:36] LABS: Albumin, Blood 2.1 g/dL (3.4-5.0); Anion Gap 11 mmol/L (6-16); Blood Urea Nitrogen 51 mg/dL (8-24); Bun/Creatinine Ratio 6.8 (12.0-20.0); CO2, Blood 24 mmol/L (21-32); Calcium, Blood 8.1 mg/dL (8.5-10.1); Chloride, Blood 102 mmol/L (98-108); Creatinine, Blood 7.48 mg/dL (0.40-1.00); Glomerular Filtration Rate 5 (60-); Glucose, Blood 116 mg/dL (70-99); Magnesium, Blood 1.8 mg/dL (1.6-2.4); Phosphorus, Blood 3.9 mg/dL (2.5-4.9); Potassium, Blood 3.1 mmol/L (3.5-5.5); Sodium, Blood 137 mmol/L (136-145)
--- NOTE | 2021-07-23 10:18 | NUR ---
DIALYSIS - PD TX COMPLETED ORDERED. ID [id number] ML, 566 ML UF. SOLUTION CLEAR. PT RESTING. DAUGHTER WITH HER
--- NOTE | 2021-07-23 17:15 | NUR ---
SHIFT SUMMARY THE PATIENT IS ALERT AND ORIENTED X3, PLEASANT AND COOPERATIVE WITH CARE. THE PATIENT HAS RECEIVED SUPPLEMENTAL POTASSIUM THIS SHIFT X2. PATIENT'S SYSTOLIC BP'S IN THE LOW 100'S THIS SHIFT. PT WILL BE STARTED ON MIDODRINE THIS EVENING. PATIENT'S CBG'S HAVE BEEN IN THE LOW 100'S ALL SHIFT. POWERGLIDE DRESSING CHANGED THIS SHIFT. PATIENT IS CURRENTLY IN PROCEDURE HAVING HD PORT PLACED. DAUGHTER IS WAITING AT BEDSIDE FOR PATIENT TO RETURN THIS NURSE WILL CONTINUE TO CARE FOR THE PATIENT ONCE THEY RETURN FROM PROCEDURE.
--- NOTE | 2021-07-23 19:06 | NUR ---
PT ASLEEP, DAUGHTER AT BEDSIDE, DIALYSIS STARTED PER DAUGHTER. PT IS STABLE. SITE WNL. NO QUESTIONS OR CONCERNS VERBALIZED BY PT OR DAUGHTER. TX REVIEWED AND IS PRESCRIBED BY MD. FRAZIER
--- NOTE | 2021-07-24 04:58 | NUR ---
SHIFT SUMMARY: PT IS A/OX3. SHE HAS BEEN FATIGUED FROM PERMACATH PLACEMENT 07/23. INSERTION SITE HAD SMALL AMOUNT OF BLEEDING, THE DRESSING WAS REINFORCED AND PRESSURE WAS APPLIED. PT's BPs WERE ALSO TRENDING SOFT; SHE HAS MIDODRINE ORDERED TIDAC, BUT IN ADDITION THE ATTENDING DID ORDER A 500ml NS BOLUS THAT WAS GIVEN. POSSIBLE DC W/ HOME HEALTH TODAY. DAUGHTER STAYED AT BEDSIDE. WE'LL CONTINUE TO MONITOR THE REMAINDER OF THE NOC SHIFT.
[2021-07-24 05:48] LABS: Hematocrit 25.8 % (33.0-51.0); Hemoglobin 8.5 g/dL (11.5-16.0)
[2021-07-24 06:26] LABS: Chloride, Blood 104 mmol/L (98-108); Potassium, Blood 3.4 mmol/L (3.5-5.5); Sodium, Blood 138 mmol/L (136-145)
[2021-07-24 07:05] LABS: Anion Gap 13 mmol/L (6-16); Blood Urea Nitrogen 45 mg/dL (8-24); Bun/Creatinine Ratio 6.4 (12.0-20.0); CO2, Blood 21 mmol/L (21-32); Creatinine, Blood 7.03 mg/dL (0.40-1.00); Glomerular Filtration Rate 6 (60-); Glucose, Blood 111 mg/dL (70-99); Magnesium, Blood 1.6 mg/dL (1.6-2.4)
--- NOTE | 2021-07-24 07:36 | NUR ---
PATIENT LYING IN BED AWAKE, ALERT. OVERNIGHT CCPD COMPLETE PRESCRIBED. PT DISCONNECTED AND CAPPED. CYCLER STRIPPED AND CLEANED. DR LYMAN CONSULTED VIA PHONE FOR NEW ORDERS / PLAN OF CARE.
--- NOTE | 2021-07-24 13:22 | NUR ---
Spoke with Dr Celaya prior to Pt visit and discussed case. Pt to D/C home today with homehealth. Pt will continue PD dialysis until chair time can be set up with [facility]. Pt sitting on edge of bed upon arrival. Pt's daughter Cristina at bedside. Pt A&OX4 and appears frail and weak. Engaged in brief and gentle discussion regarding the importance of potentialy needing caregiver support pending Pt tolerating hemodialysis. Discussed considering completing POLST and AD. Brief education given on each including each section to complete. Assisted Pt back into bed as she reports tiredness. Pt and family expresses appreciation and reports no concerns at this time. Palliative Care will remain available
[2021-07-24] MEDS ORDERED: ACET500 PO (13:53)
[2021-07-24] MEDS ORDERED: MIRALAX17 GM PO (13:54)
[2021-07-24] MEDS ORDERED: OXYC5 PO (13:54)
[2021-07-24] MEDS ORDERED: LEVE500 PO (13:55)
--- NOTE | 2021-07-24 16:18 | NUR ---
DISCHARGE NOTE PATIENT WAS DISCHARGED AT 1530 THIS SHIFT VIA WHEELCHAIR WITH DAUGHTER. THE SUKHJINDER WITT AND THIS NURSE GOT THE PATIENT INTO THE CAR WITH DAUGHTER SAFELY BEFORE THEY LEFT.
[2021-07-25 16:47] LABS: CORONAVIRUS (COVID19) CSH-NRL Negative (Negative)
== END 2021-07-24 15:38 | disposition home health service (06) | DRG 100 ==
LOC: ER 10:43 → MEDS 13:00
PROVIDERS: Emergency Medicine; Hospitalist; Internal Medicine Nephrology; ADMIT Internal Medicine
PROC: 0JH63XZ Insertion of Tunneled Vascular Access Device into Chest Subcutaneous Tissue and Fascia, Percutaneous Approach (ICD-10-PCS; principal; 2021-07-23)
PROC: 02HV33Z Insertion of Infusion Device into Superior Vena Cava, Percutaneous Approach (ICD-10-PCS; 2021-07-23)
PROC: B518YZA Fluoroscopy of Superior Vena Cava using Other Contrast, Guidance (ICD-10-PCS; 2021-07-23)
PROC: B548ZZA Ultrasonography of Superior Vena Cava, Guidance (ICD-10-PCS; 2021-07-23)
DX: R56.9 Unspecified convulsions (principal); N18.6 End stage renal disease; I50.32 Chronic diastolic (congestive) heart failure; I13.2 Hypertensive heart and chronic kidney disease with heart failure and with stage 5 chronic kidney disease, or end stage renal disease; I69.354 Hemiplegia and hemiparesis following cerebral infarction affecting left non-dominant side; E87.6 Hypokalemia; F03.90 Unspecified dementia, unspecified severity, without behavioral disturbance, psychotic disturbance, mood disturbance, and anxiety; G30.9 Alzheimer's disease, unspecified; F02.80 Dementia in other diseases classified elsewhere, unspecified severity, without behavioral disturbance, psychotic disturbance, mood disturbance, and anxiety; N18.9 Chronic kidney disease, unspecified; G62.9 Polyneuropathy, unspecified; M10.9 Gout, unspecified; Z90.710 Acquired absence of both cervix and uterus; Z90.49 Acquired absence of other specified parts of digestive tract; Z88.2 Allergy status to sulfonamides; Z88.1 Allergy status to other antibiotic agents; Z88.8 Allergy status to other drugs, medicaments and biological substances; Z88.5 Allergy status to narcotic agent; E83.42 Hypomagnesemia; D64.9 Anemia, unspecified; Z20.822 Contact with and (suspected) exposure to COVID-19
CPT/HCPCS: 36415; 36558; 70450; 70551; 76937; 77001; 80047; 80053; 80069; 82533; 82607; 82746; 82947; 83735; 84146; 84443; 85014; 85018; 85025; 93005; 93010; 95819; 96374; 97110; 97162; 97530; 99284-25; A9270; C1750; C1769; C1894; J0881; J1644; J1953; J2250; J3010; J3475; J3480; J7030; J7040; J7050; U0003

== ENCOUNTER 2021-09-21 05:45 | Observation (INO) | payer MEDICARE, OTHER ==
[~2021-09-21] VITALS: Ht 152.4 cm; Wt 68.9 kg
[~2021-09-21 05:45] MED LIST changes: +ACET500 PO; +LEVE500 PO; +MEGESTROL400 MG/11 PO; +MIRALAX17 GM PO; +Potassium Chlo20 ME1 PO
[2021-09-21 06:42] LABS: BASOPHILS ABSOLUTE AUTO 0.09 K/mm3 (0.00-0.23); BASOPHILS PERCENT AUTO 1 % (0-2); EOSINOPHILS ABSOLUTE AUTO 0.12 K/mm3 (0.00-0.68); EOSINOPHILS PERCENT AUTO 1 % (0-6); Hematocrit 25.3 % (33.0-51.0); IMMATURE GRAN ABSOLUTE AUTO 0.03 K/mm3 (0.00-0.10); IMMATURE GRAN PERCENT AUTO 0 % (0-1); LYMPHOCYTES ABSOLUTE AUTO 2.07 K/mm3 (0.84-5.20); LYMPHOCYTES PERCENT AUTO 22 % (21-46); MONOCYTES ABSOLUTE AUTO 0.58 K/mm3 (0.16-1.47); MONOCYTES PERCENT AUTO 6 % (4-13); Mean Corpuscular HGB Conc 31.6 g/dL (31.5-36.5); Mean Corpuscular Volume 101 fL (80-100); Mean Platelet Volume 9.4 fL (9.1-12.4); NEUTROPHILS ABSOLUTE AUTO 6.72 K/mm3 (1.96-9.15); NEUTROPHILS PERCENT AUTO 70 % (41-73); Platelet Count 364 K/mm3 (150-400); RDW Coefficient Variation 15.2 % (11.7-14.2); RDW Standard Deviation 55.8 fL (35.1-46.3); White Blood Cell Count 9.61 K/mm3 (4.00-11.30)
[2021-09-21 07:01] LABS: Albumin, Blood 2.3 g/dL (3.4-5.0); Albumin/Globulin Ratio 0.6 (0.8-1.8); Bilirubin, Total 0.9 mg/dL (0.1-1.0); Bun/Creatinine Ratio 3.6 (12.0-20.0); Calcium, Blood 8.8 mg/dL (8.5-10.1); Creatinine, Blood 2.53 mg/dL (0.40-1.00); Globulin, Blood 3.7 g/dL (2.2-4.0); Potassium, Blood 3.9 mmol/L (3.5-5.5)
[2021-09-21 16:17] LABS: PO2 Arterial 113 mmHg (80-100); pH Blood Arterial 7.56 (7.35-7.45)
[2021-09-21] MEDS ORDERED: COLESTID1 G1 PO (16:53)
[2021-09-21] MEDS ORDERED: ADULT GLYCERIN1 EACH PR (16:54)
[2021-09-21] MEDS ORDERED: LOPE2C PO (16:54)
[2021-09-21] MEDS ORDERED: MELA3 PO (16:56)
[2021-09-21] MEDS ORDERED: MEGE40T PO (16:56)
[2021-09-21] MEDS ORDERED: DULCOLAX400 MG/5 M PO (16:57)
--- NOTE | 2021-09-21 17:36 | NUR ---
PT ARRIVED IN THE UNIT FORM ERD, RECEIVED REPORT FROM GIANNI BOJORQUEZ. PT IS ALERT AND ORIENTED X3, FORGETFUL WITH MILD CONFUSION HX DEMENTIA. VITALS HRR ST 100'S WITH PACS, BP SYSTOLIC 100-120'S, SATS ABOVE 95% ON 2L OF O2, AFEBRILE. PT C/O SOB UPON ARRIVAL WAS ON ROOM AIR SATTING 85% O2 APPLIED AND WENT UP TO 95%. PT HAS +1 PITTING EDEMA ON BLE, HAS PERITONEAL PORT ACCESS AND HD ACCESS ON LEFT CHEST. DRESSING CDI, PT PLAN TO DIALYZE TOMORROW. DR LYMAN CONSULTED, LABS AND MEDS ORDERED TO START PT ON LASIX NON DIALYSIS DAYS. PT STATED THEY USE A LIFT AT THE REHAB PLACE TO GET HER UP IN THE CHAIR AND THAT SHE DOES PT/OT, PT IS ABLE TO HELP TURN IN SELF IN BED, CONTINENT OF STOOL AND URINE, BARELY MAKING URINE SINCE PT IS A DIALYSIS PT. PT ABLE TO MAKE NEEDS KNOWN, CURRENTLY IN BED RESTING WITH CALL LIGHTS IN REACH WILL MONITOR TIL THE END OF SHIFT
[2021-09-22 03:48] LABS: BASOPHILS ABSOLUTE AUTO 0.07 K/mm3 (0.00-0.23); BASOPHILS PERCENT AUTO 1 % (0-2); EOSINOPHILS ABSOLUTE AUTO 0.21 K/mm3 (0.00-0.68); EOSINOPHILS PERCENT AUTO 2 % (0-6); Hematocrit 21.3 % (33.0-51.0); Hemoglobin 6.8 g/dL (11.5-16.0); IMMATURE GRAN ABSOLUTE AUTO 0.05 K/mm3 (0.00-0.10); IMMATURE GRAN PERCENT AUTO 1 % (0-1); LYMPHOCYTES ABSOLUTE AUTO 1.74 K/mm3 (0.84-5.20); LYMPHOCYTES PERCENT AUTO 16 % (21-46); MONOCYTES ABSOLUTE AUTO 0.57 K/mm3 (0.16-1.47); MONOCYTES PERCENT AUTO 5 % (4-13); Mean Corpuscular HGB 32.4 pg (26.0-34.0); Mean Corpuscular HGB Conc 31.9 g/dL (31.5-36.5); Mean Corpuscular Volume 101 fL (80-100); Mean Platelet Volume 9.5 fL (9.1-12.4); NEUTROPHILS ABSOLUTE AUTO 8.08 K/mm3 (1.96-9.15); NEUTROPHILS PERCENT AUTO 75 % (41-73); Platelet Count 346 K/mm3 (150-400); RDW Standard Deviation 55.9 fL (35.1-46.3); White Blood Cell Count 10.72 K/mm3 (4.00-11.30)
[2021-09-22 04:14] LABS: Anion Gap 6 mmol/L (6-16); Blood Urea Nitrogen 14 mg/dL (8-24); CO2, Blood 34 mmol/L (21-32); Calcium, Blood 8.4 mg/dL (8.5-10.1); Chloride, Blood 96 mmol/L (98-108); Creatinine, Blood 3.47 mg/dL (0.40-1.00); Glomerular Filtration Rate 13 (60-); Glucose, Blood 96 mg/dL (70-99); Magnesium, Blood 1.8 mg/dL (1.6-2.4); Phosphorus, Blood 4.6 mg/dL (2.5-4.9); Potassium, Blood 4.1 mmol/L (3.5-5.5); Sodium, Blood 136 mmol/L (136-145)
--- NOTE | 2021-09-22 12:39 | NUR ---
PT TO DIALYSIS APPROX 0915 THIS AM. PT RETURNS TO ROOM.
--- NOTE | 2021-09-22 17:18 | NUR ---
SHIFT SUMMARY: PT CONTINUES A&Ox3, SLEEPS OFTEN T/OUT DAY, COOPERATIVE WITH CARE. PT MAINTAINS O2 SATS>93%, CURRENT O2 FLOW IS 1L/MIN. SR ON MONITOR W/PAC, VSS, EDEMA NOTED TO BUE W/L SIDE APPEARING MORE EDEMATOUS. PT TO/FROM DIALYSIS TODAY W/OUT INCIDENT, RECEIVED 1 UNIT PRBC UPON RETURN TO ROOM. Q2H TURNS COMPLETED PER ORDERS, PT ABLE TO ASSIST W/SOME TURNING, ATTENS CHANGED NEEDED, PT PRODUCING MINIMAL AMOUNT OF URINE. AT THIS TIME, PT RESTING QUIETLY IN BED, REQUESTS HER DINNER TRAY TO BE SET ASIDE FOR LATER. CALL LIGHT WITHIN REACH. WILL CONTINUE TO MONITOR AND TREAT ACCORDINGLY.
--- NOTE | 2021-09-23 01:34 | NUR ---
PT CLEAN AND DRY, ATTENDS IN PLACE. REPOSITIONED LYING ON HER LEFT SIDE. BLADDER SCAN 88
[2021-09-23 04:28] LABS: Hematocrit 26.3 % (33.0-51.0); Hemoglobin 8.3 g/dL (11.5-16.0)
[2021-09-23 04:50] LABS: Albumin, Blood 2.5 g/dL (3.4-5.0); Anion Gap 8 mmol/L (6-16); Blood Urea Nitrogen 10 mg/dL (8-24); Bun/Creatinine Ratio 4.2 (12.0-20.0); CO2, Blood 32 mmol/L (21-32); Calcium, Blood 8.5 mg/dL (8.5-10.1); Chloride, Blood 100 mmol/L (98-108); Creatinine, Blood 2.38 mg/dL (0.40-1.00); Glomerular Filtration Rate 20 (60-); Glucose, Blood 97 mg/dL (70-99); Magnesium, Blood 1.9 mg/dL (1.6-2.4); Phosphorus, Blood 3.4 mg/dL (2.5-4.9); Potassium, Blood 3.3 mmol/L (3.5-5.5); Sodium, Blood 140 mmol/L (136-145)
--- NOTE | 2021-09-23 05:02 | NUR ---
AXO X3 WITH MILD CONFUSION.NO ACUTE EVENT THROUGH OUT THIS SHIFT. PT DENIES PAIN. ON 1L O2 FOR COMFORT SATURATION MAINTAINED >92. PERITONEAL DIALYSIS INTACT. R CHEST VAST CATH FOR HD. VSS. Q2 TURNS. CALL LIGHT WITHIN REACH, SIDERAIL UP X3. POSSIBLE DISCHARGE TODAY.
[2021-09-23 14:02] LABS: Influenza A, PCR NEGATIVE (NEGATIVE); Influenza B, PCR NEGATIVE (NEGATIVE); Resp Syncytial Virus, PCR NEGATIVE (NEGATIVE); SARS-Cov-2 (COVID-19) PCR, MMC NEGATIVE (NEGATIVE)
--- NOTE | 2021-09-23 15:34 | NUR ---
DISCHARGE: PT CONTINUES A&Ox3, SATS >90% ON RA, SR ON MONITOR. PT MORE ALERT AND TALKATIVE TODAY, EATS BREAKFAST AND LUNCH, ASSISTS WITH TURNS/CHANGING OF ATTENS. PT RECEIVES ANOTHER ROUND OF DIALYSIS TODAY, TOLERATES WELL. PT HAS BEEN CLEARED FOR DISCHARGE BACK TO [facility], [facility] TRANSPORT ARRIVES FOR PT, PT TRANSFERED TO [facility] AND DEPARTS IN [facility]. REPORT CALLED TO SOBIA AT [facility].
== END 2021-09-23 15:17 ==
LOC: ER 05:45 → PCU 05:46 → ERHOLD 05:46 → PCU 15:03
PROVIDERS: Emergency Medicine; Internal Medicine Nephrology; ADMIT Internal Medicine
DX: E87.70 Fluid overload, unspecified (principal); I13.2 Hypertensive heart and chronic kidney disease with heart failure and with stage 5 chronic kidney disease, or end stage renal disease; N18.6 End stage renal disease; I50.32 Chronic diastolic (congestive) heart failure; R60.0 Localized edema; I48.0 Paroxysmal atrial fibrillation; E87.1 Hypo-osmolality and hyponatremia; J90 Pleural effusion, not elsewhere classified; D64.9 Anemia, unspecified; F03.90 Unspecified dementia, unspecified severity, without behavioral disturbance, psychotic disturbance, mood disturbance, and anxiety; I95.9 Hypotension, unspecified; E87.6 Hypokalemia; G47.33 Obstructive sleep apnea (adult) (pediatric); G62.9 Polyneuropathy, unspecified; E66.9 Obesity, unspecified; K21.9 Gastro-esophageal reflux disease without esophagitis; Z99.2 Dependence on renal dialysis; Z79.01 Long term (current) use of anticoagulants; Z20.822 Contact with and (suspected) exposure to COVID-19; Z68.30 Body mass index [BMI] 30.0-30.9, adult
CPT/HCPCS: 0241U; 36415; 36600; 71045; 80053; 80069; 82803; 83735; 83880; 84145; 84484; 85014; 85018; 85025; 86850; 86870; 86900; 86901; 86902; 86905; 86922; 93005; 93010; 96372; 96374; 96376; 99285-25; A9270; G0257; G0378; J0881; J1940; J7050; P9016; P9046

== ENCOUNTER 2021-10-03 14:12 | Emergency (ER) | payer MEDICARE, OTHER ==
[~2021-10-03] VITALS: Ht 152.4 cm; Wt 71.2 kg
[~2021-10-03 14:12] MED LIST changes: +ADULT GLYCERIN1 EACH PR; +COLESTID1 G1 PO; +DULCOLAX400 MG/5 M PO; +LOPE2C PO; +MEGE40T PO; +MELA3 PO
[2021-10-03] MEDS ORDERED: AFRIN15 M6 (15:45)
== END 2021-10-03 16:38 | disposition home or self-care (01) ==
LOC: ER 14:12
DX: S02.2XXA Fracture of nasal bones, initial encounter for closed fracture (principal); I13.0 Hypertensive heart and chronic kidney disease with heart failure and stage 1 through stage 4 chronic kidney disease, or unspecified chronic kidney disease; N18.6 End stage renal disease; I50.9 Heart failure, unspecified; G62.9 Polyneuropathy, unspecified; Z86.73 Personal history of transient ischemic attack (TIA), and cerebral infarction without residual deficits; Z99.2 Dependence on renal dialysis; Z88.6 Allergy status to analgesic agent; Z91.048 Other nonmedicinal substance allergy status; Z88.2 Allergy status to sulfonamides; Z88.1 Allergy status to other antibiotic agents; Z88.5 Allergy status to narcotic agent; Z79.899 Other long term (current) drug therapy; W05.0XXA Fall from non-moving wheelchair, initial encounter
CPT/HCPCS: 70450; 99284-25

== ENCOUNTER 2021-10-07 13:51 | Emergency (ER) | payer MEDICARE, OTHER ==
[~2021-10-07] VITALS: Ht 152.4 cm; Wt 68.0 kg
[~2021-10-07 13:51] MED LIST changes: +AFRIN15 M6
[2021-10-07] MEDS ORDERED: LORCET 5-325 M1 EACH PO (17:02)
== END 2021-10-07 17:30 | disposition home or self-care (01) ==
LOC: ER 13:51
DX: S52.615A Nondisplaced fracture of left ulna styloid process, initial encounter for closed fracture (principal); S52.502A Unspecified fracture of the lower end of left radius, initial encounter for closed fracture; I13.2 Hypertensive heart and chronic kidney disease with heart failure and with stage 5 chronic kidney disease, or end stage renal disease; N18.6 End stage renal disease; I50.9 Heart failure, unspecified; Z79.899 Other long term (current) drug therapy; Z88.2 Allergy status to sulfonamides; Z88.8 Allergy status to other drugs, medicaments and biological substances; W19.XXXA Unspecified fall, initial encounter
CPT/HCPCS: 29125; 71046; 73110; 99283-25

== ENCOUNTER 2021-10-28 15:05 | Inpatient (IN) | payer MEDICARE, OTHER ==
[~2021-10-28] VITALS: Wt 65.1 kg
[~2021-10-28 15:05] MED LIST changes: +LORCET 5-325 M1 EACH PO; -MEGE40T PO; +MEGESTROL ACETATE PO
[2021-10-28 16:17] LABS: BASOPHILS PERCENT AUTO 1 % (0-2); EOSINOPHILS ABSOLUTE AUTO 0.11 K/mm3 (0.00-0.68); EOSINOPHILS PERCENT AUTO 1 % (0-6); Hematocrit 32.8 % (33.0-51.0); Hemoglobin 10.3 g/dL (11.5-16.0); IMMATURE GRAN ABSOLUTE AUTO 0.09 K/mm3 (0.00-0.10); IMMATURE GRAN PERCENT AUTO 1 % (0-1); LYMPHOCYTES ABSOLUTE AUTO 1.61 K/mm3 (0.84-5.20); LYMPHOCYTES PERCENT AUTO 10 % (21-46); MONOCYTES ABSOLUTE AUTO 0.99 K/mm3 (0.16-1.47); MONOCYTES PERCENT AUTO 6 % (4-13); Mean Corpuscular HGB 30.8 pg (26.0-34.0); Mean Corpuscular HGB Conc 31.4 g/dL (31.5-36.5); Mean Corpuscular Volume 98 fL (80-100); Mean Platelet Volume 9.3 fL (9.1-12.4); NEUTROPHILS ABSOLUTE AUTO 13.18 K/mm3 (1.96-9.15); NEUTROPHILS PERCENT AUTO 82 % (41-73); Platelet Count 285 K/mm3 (150-400); RDW Coefficient Variation 17.4 % (11.7-14.2); RDW Standard Deviation 62.8 fL (35.1-46.3); Red Blood Cell Count 3.34 M/mm3 (3.80-5.20); White Blood Cell Count 16.08 K/mm3 (4.00-11.30)
[2021-10-28 16:54] LABS: Albumin, Blood 2.5 g/dL (3.4-5.0); Albumin/Globulin Ratio 0.6 (0.8-1.8); Bilirubin, Total 1.6 mg/dL (0.1-1.0); Calcium, Blood 8.8 mg/dL (8.5-10.1); Creatinine, Blood 1.82 mg/dL (0.40-1.00); Globulin, Blood 4.1 g/dL (2.2-4.0); Potassium, Blood 3.9 mmol/L (3.5-5.5); Total Protein, Blood 6.6 g/dL (6.4-8.2)
[2021-10-28 17:30] LABS: Influenza A, PCR NEGATIVE (NEGATIVE); Influenza B, PCR NEGATIVE (NEGATIVE); Resp Syncytial Virus, PCR NEGATIVE (NEGATIVE); SARS-Cov-2 (COVID-19) PCR, MMC NEGATIVE (NEGATIVE)
[2021-10-28 17:37] LABS: Base Excess Venous 13.7 mmol/L; Bicarbonate Venous 36.5 mmol/L (24.0-30.0); PCO2 Venous 37.5 mmHg (38-42); PO2 Venous 65.9 mmHg (38-42); pH Blood Venous 7.59 (7.34-7.37)
--- NOTE | 2021-10-28 22:38 | NUR ---
CALLED FOR REPORT BUT MATH INTERVENTIONIST IS CURRENTLY WITH ANOTHER PT AND WILL CALL BACK.
[2021-10-28] MEDS ORDERED: Vitamin D1000 UNI1 PO (23:32)
--- NOTE | 2021-10-29 00:55 | NUR ---
REPORT FROM GALO ASHLEY RN. PT TO THE FLOOR BY MARII AND SLID TO HOSPITAL BED. DAUGHTER TO STAY THE NIGHT WITH HER. PT AND DAUGHTER ORIENTED TO ROOM AND UNIT. CALL LIGHT IN REACH. BED IN LOWEST POSITION.
[2021-10-29 05:16] LABS: BASOPHILS ABSOLUTE AUTO 0.08 K/mm3 (0.00-0.23); BASOPHILS PERCENT AUTO 1 % (0-2); EOSINOPHILS ABSOLUTE AUTO 0.18 K/mm3 (0.00-0.68); EOSINOPHILS PERCENT AUTO 2 % (0-6); Hematocrit 27.6 % (33.0-51.0); Hemoglobin 8.8 g/dL (11.5-16.0); IMMATURE GRAN ABSOLUTE AUTO 0.04 K/mm3 (0.00-0.10); IMMATURE GRAN PERCENT AUTO 0 % (0-1); LYMPHOCYTES ABSOLUTE AUTO 1.26 K/mm3 (0.84-5.20); LYMPHOCYTES PERCENT AUTO 12 % (21-46); MONOCYTES ABSOLUTE AUTO 0.61 K/mm3 (0.16-1.47); MONOCYTES PERCENT AUTO 6 % (4-13); Mean Corpuscular HGB 30.8 pg (26.0-34.0); Mean Corpuscular HGB Conc 31.9 g/dL (31.5-36.5); Mean Corpuscular Volume 97 fL (80-100); Mean Platelet Volume 9.8 fL (9.1-12.4); NEUTROPHILS ABSOLUTE AUTO 8.47 K/mm3 (1.96-9.15); NEUTROPHILS PERCENT AUTO 80 % (41-73); Platelet Count 246 K/mm3 (150-400); RDW Coefficient Variation 17.2 % (11.7-14.2); RDW Standard Deviation 61.4 fL (35.1-46.3); Red Blood Cell Count 2.86 M/mm3 (3.80-5.20); White Blood Cell Count 10.64 K/mm3 (4.00-11.30)
[2021-10-29 05:44] LABS: Albumin, Blood 2.2 g/dL (3.4-5.0); Albumin/Globulin Ratio 0.6 (0.8-1.8); Bilirubin, Total 0.9 mg/dL (0.1-1.0); Bun/Creatinine Ratio 11.6 (12.0-20.0); Calcium, Blood 8.7 mg/dL (8.5-10.1); Creatinine, Blood 2.42 mg/dL (0.40-1.00); Globulin, Blood 3.8 g/dL (2.2-4.0); Potassium, Blood 3.5 mmol/L (3.5-5.5)
--- NOTE | 2021-10-29 06:07 | NUR ---
OLAP DEVELOPER SUMMARY ADMITTED FOR ACUTE RESPIRATORY FAILURE. PT IS A DNR. SHE IS A DIALYSIS PT. PT IS CURRENTLY RESTING WELL ON 2L BY MS. SHE HAS MULTIPLE ECCHYMOTIC AREAS TO HER FACE AND HEAD AFTER A FALL OUT OF HER WC AT [facility]. PT HAS BECOME GENERALLY WEAK OVER THE LAST TWO WEEKS ACCORDING TO DAUGHTER WHO IS AT BEDSIDE. PT UNABLE TO SPEAK TO ME BUT IS ANSWERING QUESTIONS BY SHAKING HER HEAD AND NODDING. SHE HAS PREVIOUS FX OF THE LEFT WRIST SECONDARY TO FALL BUT DENIES PAIN. PT DOES HAVE SWELLING TO THE BLE AND RALES IN THE BASES WHEN LISTENING TO HER LUNGS. SHE IS CURRENTLY NPO PENDING SPEECH EVAL. SHE HAS A PEG TUBE TO THE LEFT UPPER ABDOMEN - DRESSING WAS CHANGED. THERE IS ALSO A DIALYSIS PORT TO THE LEFT UPPER CHEST. NURA HAS BEEN CONSULTED AND WILL SEE HER TODAY.
--- NOTE | 2021-10-29 14:49 | NUR ---
Patient is lying in bed and alert. Patient is not very verbal but Spouse Luisito, talks enough for pt and himself. Luisito is very pleasant and explains patient's medical history and shares some of their life history together. He also tells me about pt's Hindu background and how prayer is valuable to her. I listen empathically, conduct a life review and provide a calming presence and prayer. Patient responds well and speaks for the first time with me after the prayer and says, "thank you." I will continue to provide spiritual and emotional support as needed.
--- NOTE | 2021-10-29 17:51 | NUR ---
PATIENT A/O TO SELF AND FAMILY, VERY FEW WORDS TODAY. DOES NOD APPROPRIATELY TO QUESTIONING. SEEN BY SPEECH THERAPY TODAY AND PLACED ON A SOFT DIET. VERY LITTLE PO INTAKE. BRACE TO L WRIST DUE TO RECENT FRACTURE. MULTIPLE BRUISES TO FACE AND UPPER EXTREMITIES FROM RECENT FALL. FAMILY AT BEDSIDE THROUGHOUT THE SHIFT. NO DIALYSIS TODAY. NORMAL SCHEDULE IS , AND WEDNESDAY. HAS OLD PERITINEAL DIALYSIS CATH, BUT HAS BEEN RECEIVING HEMODIALYSIS THROUGH PERM CATH TO L CHEST. PATIENT ALSO HAS OLD FISTULA TO R ARM. WORKED WITH PT TODAY AND WAS ABLE TO SIT AT SIDE OF THE BED WITH ASSIST. POWERGLIDE TO ODETTE WNL AND SL.
--- NOTE | 2021-10-30 02:25 | NUR ---
RECEIVED A CALL FROM TELEMETRY THAT PT'S HR INCREASED TO THE 130S. UPON EXAMINING THE PT, SHE REPORTS HEART FLUTTERING BUT NO PAIN OR ANXIETY. VITALS TAKEN AND PT OXYGEN SATURATION WAS 80% ON RA. PT FOUND TO HAVE WRAPPED HER CANNULA TUBING AROUND HER NECK AND IT WAS NO LONGER IN HER NOSE. CANNULA REMOVED FROM AROUND HER NECK AND PLACED BACK IN HER NOSE AND INCREASED TO 4L WITH IMPROVEMENT TO 100% AND REDUCTION OF HR TO 110S AGAIN. OXYGEN THEN DECREASED BACK TO THE ORIGINAL 2L.
--- NOTE | 2021-10-30 04:54 | NUR ---
COMPLIANCE REPRESENTATIVE DEALER SUMMARY ADMITTED FOR ACUTE RESPIRATORY FAILURE. PT IS A DNR. SHE HAS BEEN SATTING MID TO HIGH 90S ON 2L BY NC. TELE CALLED ABOUT INCREASING HR TO THE 130S AND PT FOUND TO HAVE REMOVED NC AND SATTING AT 80 ON RA. RETURNED TO MID 90S WITH REPLACEMENT OF NC. PT APPEARS VERY FATIGUED AND WEAK. BRUISING TO FACE FROM PREVIOUS FALL IS SLIGHTLY WORSE TODAY. DAUGHTER REMAINS AT BS. PT NODS AND SHAKES HER HEAD TO ANSWER MOST QUESTIONS BUT HAS BEEN SPEAKING SLIGHTLY MORE. COOPERATIVE WITH CARE.
[2021-10-30 05:05] LABS: BASOPHILS ABSOLUTE AUTO 0.07 K/mm3 (0.00-0.23); BASOPHILS PERCENT AUTO 1 % (0-2); EOSINOPHILS ABSOLUTE AUTO 0.18 K/mm3 (0.00-0.68); EOSINOPHILS PERCENT AUTO 2 % (0-6); Hematocrit 24.7 % (33.0-51.0); IMMATURE GRAN ABSOLUTE AUTO 0.06 K/mm3 (0.00-0.10); IMMATURE GRAN PERCENT AUTO 1 % (0-1); LYMPHOCYTES ABSOLUTE AUTO 1.06 K/mm3 (0.84-5.20); LYMPHOCYTES PERCENT AUTO 10 % (21-46); MONOCYTES ABSOLUTE AUTO 0.51 K/mm3 (0.16-1.47); MONOCYTES PERCENT AUTO 5 % (4-13); Mean Corpuscular HGB 31.5 pg (26.0-34.0); Mean Corpuscular HGB Conc 32.4 g/dL (31.5-36.5); Mean Corpuscular Volume 97 fL (80-100); Mean Platelet Volume 9.6 fL (9.1-12.4); NEUTROPHILS ABSOLUTE AUTO 9.17 K/mm3 (1.96-9.15); NEUTROPHILS PERCENT AUTO 83 % (41-73); Platelet Count 254 K/mm3 (150-400); RDW Standard Deviation 60.1 fL (35.1-46.3); Red Blood Cell Count 2.54 M/mm3 (3.80-5.20); White Blood Cell Count 11.05 K/mm3 (4.00-11.30)
[2021-10-30 05:55] LABS: Anion Gap 7 mmol/L (6-16); Blood Urea Nitrogen 36 mg/dL (8-24); Bun/Creatinine Ratio 10.4 (12.0-20.0); CO2, Blood 31 mmol/L (21-32); Calcium, Blood 8.8 mg/dL (8.5-10.1); Chloride, Blood 99 mmol/L (98-108); Creatinine, Blood 3.47 mg/dL (0.40-1.00); Glomerular Filtration Rate 13 (60-); Glucose, Blood 103 mg/dL (70-99); Potassium, Blood 3.5 mmol/L (3.5-5.5); Sodium, Blood 137 mmol/L (136-145)
--- NOTE | 2021-10-30 07:51 | NUR ---
SARABIA CATHETER: NO SARABIA CATHETER IN PLACE AT THIS TIME.
[2021-10-30 08:54] LABS: Percent Saturation 33.8 % (15.0-50.0)
--- NOTE | 2021-10-30 17:08 | NUR ---
PATIENT A/OX2-3, VERY LITTLE VERBAL COMMUNICATION. PATIENT VERY WITHDRAWN AND ONLY NODS TO QUESTIONING MOST OF THE TIME. VSS, ON 2LO2, TRIAL ON RA PATIENT DROPPED TO 81%. PATIENT ON RA AT BASELINE. SKIN INTACT. INCONTINENT OF URINE/STOOL, VERY LITTLE URINE OUTPUT. WENT DOWN FOR DIALYSIS THIS AM. TOLERATING SOFT DIET, BUT WILL NOT FEED HERSELF. POWERGLIDE TO ODETTE WNL AND SL. FALL PRECAUTIONS IN PLACE. DAUGHTER AT BEDSIDE THROUGHOUT THIS SHIFT.
[2021-10-31 04:44] LABS: Hematocrit 24.8 % (33.0-51.0); Hemoglobin 7.6 g/dL (11.5-16.0)
--- NOTE | 2021-10-31 04:49 | NUR ---
Pt a & o to self. Pt cooperative and withdrawn. Pt on dyalisis. AM labs drawn from midline. Pt denied any pain. Family present in room all night. Telemetry: sinus rythm; sinus tachy. Peritoneal dialysis in place: c,d,i. Guaic and sputum samples not collected. Pt did not have a BM. 2 assist. L) wrist fx and brace in place.
[2021-10-31 04:53] LABS: Anion Gap 4 mmol/L (6-16); Blood Urea Nitrogen 24 mg/dL (8-24); Bun/Creatinine Ratio 9.7 (12.0-20.0); CO2, Blood 35 mmol/L (21-32); Calcium, Blood 8.8 mg/dL (8.5-10.1); Chloride, Blood 103 mmol/L (98-108); Creatinine, Blood 2.48 mg/dL (0.40-1.00); Glomerular Filtration Rate 19 (60-); Glucose, Blood 111 mg/dL (70-99); Magnesium, Blood 1.9 mg/dL (1.6-2.4); Phosphorus, Blood 2.1 mg/dL (2.5-4.9); Potassium, Blood 3.9 mmol/L (3.5-5.5); Sodium, Blood 142 mmol/L (136-145)
--- NOTE | 2021-10-31 17:02 | NUR ---
SHIFT SUMMARY PATIENT DENIES PAIN, NAUSEA, AND SHORTNESS OF BREATH. PATIENT HAS BEEN TOO WEAK TO GET OUT OF BED. PATIENT WAS ABLE TO SIT ON SIDE OF BED WITH PT AND OT TODAY. PATIENT FATIGUES VERY QUICKLY. PATIENT EATING AND DRINKING WELL. PATIENT MOSTLY NONVERBAL, WILL OCCASIONALLY ANSWER WITH ONE WORD. PATIENT HAD DIALYSIS IN THE ROOM THIS AFTERNOON. PATIENT IS ON 2L VIA N/C, MAINTAINING SATS ABOVE 95%. PATIENT HAD FAMILY AT BEDSIDE ENTIRE SHIFT. PATIENT IS PLEASANT AND COOPERATIVE WITH CARE.
--- NOTE | 2021-11-01 04:44 | NUR ---
PT A AND O TO SELF. PT NON-VERBAL. FAMILY PRESENT IN ROOM. V/S WNL; 2LPM VIA N/C. POWERGLIDE TO L) UPPER ARM FLUSHED W/O DIFFICULTY. PERMACATH TO L) CHEST. PD CATHETER L) ABDOMEN. DAILY DIALYSIS. LABS THIS AM. TELY: SINUS/SINUS TACHY. BEDREST; 2-ASSIST. MEDS, WHOLE ONE AT TIME. IV A/B. NO PRN MEDS.
[2021-11-01 04:47] LABS: BASOPHILS ABSOLUTE AUTO 0.06 K/mm3 (0.00-0.23); BASOPHILS PERCENT AUTO 1 % (0-2); EOSINOPHILS ABSOLUTE AUTO 0.26 K/mm3 (0.00-0.68); EOSINOPHILS PERCENT AUTO 3 % (0-6); Hematocrit 24.5 % (33.0-51.0); Hemoglobin 7.6 g/dL (11.5-16.0); IMMATURE GRAN ABSOLUTE AUTO 0.03 K/mm3 (0.00-0.10); IMMATURE GRAN PERCENT AUTO 0 % (0-1); LYMPHOCYTES ABSOLUTE AUTO 1.51 K/mm3 (0.84-5.20); LYMPHOCYTES PERCENT AUTO 17 % (21-46); MONOCYTES ABSOLUTE AUTO 0.56 K/mm3 (0.16-1.47); MONOCYTES PERCENT AUTO 6 % (4-13); Mean Corpuscular HGB 31.3 pg (26.0-34.0); Mean Corpuscular Volume 101 fL (80-100); Mean Platelet Volume 9.4 fL (9.1-12.4); NEUTROPHILS ABSOLUTE AUTO 6.42 K/mm3 (1.96-9.15); NEUTROPHILS PERCENT AUTO 73 % (41-73); Platelet Count 277 K/mm3 (150-400); RDW Coefficient Variation 17.2 % (11.7-14.2); RDW Standard Deviation 63.7 fL (35.1-46.3); Red Blood Cell Count 2.43 M/mm3 (3.80-5.20); White Blood Cell Count 8.84 K/mm3 (4.00-11.30)
[2021-11-01 05:06] LABS: Albumin, Blood 2.1 g/dL (3.4-5.0); Anion Gap 4 mmol/L (6-16); Blood Urea Nitrogen 20 mg/dL (8-24); Bun/Creatinine Ratio 9.7 (12.0-20.0); CO2, Blood 33 mmol/L (21-32); Calcium, Blood 9.2 mg/dL (8.5-10.1); Chloride, Blood 105 mmol/L (98-108); Creatinine, Blood 2.06 mg/dL (0.40-1.00); Glomerular Filtration Rate 23 (60-); Glucose, Blood 108 mg/dL (70-99); Phosphorus, Blood 1.9 mg/dL (2.5-4.9); Potassium, Blood 4.6 mmol/L (3.5-5.5); Sodium, Blood 142 mmol/L (136-145)
--- NOTE | 2021-11-01 16:38 | NUR ---
SHIFT SUMMARY PT RESTING QUIETLY AT START OF SHIFT WITH DAUGHTER AT BS. DR LYMAN IN TO SEE PT THIS AM. PLATE DEVELOPER CALLED TO REPORT DIALYSIS ORDERED FOR AFTER 1200 PM TODAY. PT TAKEN DOWN VIA BED WHEN READY. PT VERY WEAK AND LETHARGIC, NOT WANTING TO EAT OR DRINK MUCH AT ALL. PT REPOSITIONED NEEDED. MOSTLY ON RA TODAY WITH BIOX AT MID TO UPPER 90'S. DR CURRY IN TO SEE PT AND REQUESTED PT BE PLACED ON CPAP WHEN NAPPING. CPAP PLACED, BUT PT DOES NOT LIKE IT AND WILL NOT TOLERATE IT. DR CURRY AND RT NOTIFIED. PT'S DAUGHTER THEN BROUGHT IN PT'S CPAP FROM HOME. RT NOTIFIED TO ASSIST PT IN PLACEMENT TO SEE IF SHE WOULD TOLERATE IT. SPEECH TX ALSO IN THIS AM; NEW DIET ORDERS PLACED. PALLIATIVE CARE CONSULT ORDERED PT NOT WANTING TO PARTICIPATE IN CARE. PT REFUSING TO WORK WITH PT/OT WELL. PALLIATIVE CARE RN IN TO SEE PT AND WILL F/U WITH FAMILY AND PT AGAIN. PT RESTING QUIETLY AT THIS TIME. CALL LT IN REACH.
--- NOTE | 2021-11-01 17:56 | NUR ---
PT WAS NONVERBAL THROUGHTOUT SHIFT. PT ANSWERS YES/NO QUESTIONS WELL. PT WAS SCHEDULED FOR DIAYLASIS AT 1230 TODAY. PT CAME BACK FROM DIAYLASIS LETHARGIC WITH A BP 80/39, HR 101, PT WAS GIVEN SCHEDULED MIDODRINE 5MG PO. PT FAMILY WAS PRESENT THROUGHOUT SHIFT, ENCOURAGING PATIENT TO EAT AND DRINK. PT WAS ASSESSED BY PALLIATIVE CARE. PT WAS REPOSTIONED AND BRIEF WAS CHANGE. STOOL SAMPLE WAS COLLECTED AND SENT TO LAB TO ANAYLASIS. PT IS RESTING IN BED WITH CALL LIGHT WITHIN REACH AND FAMILY IS IN ROOM WITH PT.
--- NOTE | 2021-11-02 04:49 | NUR ---
pt's status/condition unchanged. Pt a & o to self and family. Pt non-verbal. Bedfast, 2-assist. Reposition q2hrs. Fx to L) wrist; brace in place. V/S WNL; O2 at 1lpm via N/C. Family in room. Powerglide to L) upper arm. Permacath to L) chest for dyalisis. Fistula to R) arm. PD catheter to L) abdomen. Pills, whole one at a time. No BM this shift. Pt denied pain. Will continue to monitor.
[2021-11-02 04:50] LABS: Hematocrit 23.9 % (33.0-51.0); Hemoglobin 7.3 g/dL (11.5-16.0)
[2021-11-02 05:15] LABS: Albumin, Blood 2.1 g/dL (3.4-5.0); Anion Gap 5 mmol/L (6-16); Blood Urea Nitrogen 22 mg/dL (8-24); Bun/Creatinine Ratio 11.8 (12.0-20.0); CO2, Blood 35 mmol/L (21-32); Calcium, Blood 8.6 mg/dL (8.5-10.1); Chloride, Blood 101 mmol/L (98-108); Creatinine, Blood 1.87 mg/dL (0.40-1.00); Glomerular Filtration Rate 26 (60-); Glucose, Blood 104 mg/dL (70-99); Magnesium, Blood 1.8 mg/dL (1.6-2.4); Phosphorus, Blood 2.3 mg/dL (2.5-4.9); Potassium, Blood 4.4 mmol/L (3.5-5.5); Sodium, Blood 141 mmol/L (136-145)
[2021-11-02 11:58] LABS: Stool Occult Blood Guaiac 1 Neg (Neg)
--- NOTE | 2021-11-02 16:50 | NUR ---
SHIFT SUMMARY PT RESTING QUIETLY AT START OF SHIFT. PT'S DAUGHTER IN RM AND SOON PT'S . DR LYMAN IN TO SEE PT EARLY WELL. NO DIALYSIS TODAY. PT REMAINS WEAK AND DECONDITIONED, NOT WANTING TO PARTICIPATE IN CARE TO IMPROVE HEALTH AND MOBILTIY, REFUSING TO WORK WITH P/T. PALLIATIVE CARE TRYING TO TALK WITH PT AND FAMILY TO DISCUSS PLAN OF CARE GOING FORWARD. DENIES FURTHER NEEDS AT THIS TIME. CALL LT IN REACH.
--- NOTE | 2021-11-02 17:01 | NUR ---
PT WAS RESTING QUIETLY IN BED. PT GOT AN ORDER FOR PHOSPHORUS IV INFUSION. PT STOOL CULTURE NEG. PT WAS ABLE TO SWALLOW PILLS WHOLE IN APPLESAUCE. PT HAD GOOD APPETITE FOR ALL MEALS. PT HAD A BED BATH AND SLEPT WELL. PT REPOSITIONED THROUGHOUT SHIFT. PT FAMILY WAS AT BEDISDE THROUGHOUT SHIFT. PT FAMILY ASSISTED PT WITH ALL MEALS. PT RESTING IN BED WITH CALL LIGHT WITHIN REACH.
[2021-11-03 05:06] LABS: Hematocrit 24.1 % (33.0-51.0); Hemoglobin 7.6 g/dL (11.5-16.0)
[2021-11-03 05:33] LABS: Albumin, Blood 2.1 g/dL (3.4-5.0); Anion Gap 6 mmol/L (6-16); Blood Urea Nitrogen 36 mg/dL (8-24); Bun/Creatinine Ratio 12.7 (12.0-20.0); CO2, Blood 33 mmol/L (21-32); Calcium, Blood 8.8 mg/dL (8.5-10.1); Chloride, Blood 99 mmol/L (98-108); Creatinine, Blood 2.83 mg/dL (0.40-1.00); Glomerular Filtration Rate 16 (60-); Glucose, Blood 99 mg/dL (70-99); Magnesium, Blood 1.9 mg/dL (1.6-2.4); Phosphorus, Blood 4.1 mg/dL (2.5-4.9); Sodium, Blood 138 mmol/L (136-145)
--- NOTE | 2021-11-03 05:51 | NUR ---
Pt a & o to self. V/S stable. Tely: sinus rythm;. HR: 94 bpm. Total assist. Hx of falls. Pt cooperative and pleasant. Family in room. Pills whole one at a time. Pt non-verbal. Poor appetite. Powerglide L) upper arm; Permacath L) chest; fistula R) arm & PD cath L) abdomen. Pt denied any pain. No BM this shift. Will continue to monitor.
--- NOTE | 2021-11-03 17:30 | NUR ---
SHIFT SUMMARY PATIENT DENIES PAIN, NAUSEA, AND SHORTNESS OF BREATH. PATIENT IS ON 1L MAINTAINING SATS ABOVE 90%. PATIENT DID VERBALIZE THIS MORNING WHEN ASKED QUESTIONS. ANSWERED WITH ONE WORD. PATIENT HAD DIALYSIS THIS MORNING. PATIENT WORKED WITH OT AFTER DIALYSIS, BUT TOO TIRED TO WORK WITH PT. PATIENT SLEPT MOST OF AFTERNOON. DAUGHTER AND VISITED TODAY. PATIENT HAS POOR PO INTAKE. PATIENT IS PLEASANT AND COOPERATIVE WITH CARE.
[2021-11-04 05:28] LABS: Hematocrit 26.4 % (33.0-51.0); Hemoglobin 8.3 g/dL (11.5-16.0)
--- NOTE | 2021-11-04 05:40 | NUR ---
FREE LANCE ARTIST SUMMARY PATIENT A&O X1. PATIENT SLEPT MUCH OF THE NIGHT WITH DAUGHTER AT BEDSIDE. SHE EXPERIENCED INCREASING LUNG CONGESTION AND DYSPNEA THIS MORNING. THESE SYMPTOMS IMPROVED WHEN PATIENT WAS REPOSITIONED TOWARD THE HOB AND HOB WAS RAISED. NO OTHER ACUTE CHANGES THIS SHIFT.
[2021-11-04 06:01] LABS: Albumin, Blood 2.2 g/dL (3.4-5.0); Anion Gap 4 mmol/L (6-16); Blood Urea Nitrogen 27 mg/dL (8-24); Bun/Creatinine Ratio 12.8 (12.0-20.0); CO2, Blood 35 mmol/L (21-32); Calcium, Blood 8.9 mg/dL (8.5-10.1); Chloride, Blood 102 mmol/L (98-108); Creatinine, Blood 2.11 mg/dL (0.40-1.00); Glomerular Filtration Rate 23 (60-); Glucose, Blood 99 mg/dL (70-99); Phosphorus, Blood 2.7 mg/dL (2.5-4.9); Potassium, Blood 5.3 mmol/L (3.5-5.5); Sodium, Blood 141 mmol/L (136-145)
[2021-11-04] MEDS ORDERED: VISBIOME 112.51 EACH PO (11:41)
[2021-11-04] MEDS ORDERED: CEPH250A PO (11:42)
[2021-11-04 12:05] LABS: Influenza A, PCR NEGATIVE (NEGATIVE); Influenza B, PCR NEGATIVE (NEGATIVE); Resp Syncytial Virus, PCR NEGATIVE (NEGATIVE); SARS-Cov-2 (COVID-19) PCR, MMC NEGATIVE (NEGATIVE)
--- NOTE | 2021-11-04 14:29 | NUR ---
DISCHARGE PATIENT TRANSPORTED VIA WHEELCHAIR BY [facility] TO [facility]. DISCHARGE INSTRUCTIONS FAXED TO [facility]. MEDICATIONS FAXED TO [facility]. COPIES OF BOTH SENT WITH PHARMACY ACCOUNT DIRECTOR OF AMBULANCE WELL. BELONGINGS SENT WITH PATIENT. POWERGLIDE REMOVED WITHOUT DIFFICULTY. [facility] TO SCHEDULE FOLLOW UP APPOINTMENT. REPORT CALLED TO MARYELLEN RICE AT [facility].
== END 2021-11-04 13:54 | DRG 871 ==
LOC: ER 15:05 → MEDS 18:26
PROVIDERS: Family Medicine; Internal Medicine Nephrology; Physician Assistant; ADMIT Internal Medicine
PROC: 5A1D70Z Performance of Urinary Filtration, Intermittent, Less than 6 Hours Per Day (ICD-10-PCS; principal; 2021-10-28)
PROC: 3E03329 Introduction of Other Anti-infective into Peripheral Vein, Percutaneous Approach (ICD-10-PCS; 2021-10-28)
DX: A41.9 Sepsis, unspecified organism (principal); J96.01 Acute respiratory failure with hypoxia; N18.6 End stage renal disease; I50.33 Acute on chronic diastolic (congestive) heart failure; J69.0 Pneumonitis due to inhalation of food and vomit; J18.9 Pneumonia, unspecified organism; N25.81 Secondary hyperparathyroidism of renal origin; I13.2 Hypertensive heart and chronic kidney disease with heart failure and with stage 5 chronic kidney disease, or end stage renal disease; E87.3 Alkalosis; Z66 Do not resuscitate; S00.83XA Contusion of other part of head, initial encounter; F03.90 Unspecified dementia, unspecified severity, without behavioral disturbance, psychotic disturbance, mood disturbance, and anxiety; I05.0 Rheumatic mitral stenosis; G62.9 Polyneuropathy, unspecified; D63.1 Anemia in chronic kidney disease; Z20.822 Contact with and (suspected) exposure to COVID-19; I48.0 Paroxysmal atrial fibrillation; E66.9 Obesity, unspecified; M10.9 Gout, unspecified; G47.33 Obstructive sleep apnea (adult) (pediatric); E87.70 Fluid overload, unspecified; R53.1 Weakness; K21.9 Gastro-esophageal reflux disease without esophagitis; R60.0 Localized edema; E88.09 Other disorders of plasma-protein metabolism, not elsewhere classified; R56.9 Unspecified convulsions; E87.5 Hyperkalemia; E86.9 Volume depletion, unspecified; J98.01 Acute bronchospasm; D46.9 Myelodysplastic syndrome, unspecified; Z99.2 Dependence on renal dialysis; Z90.710 Acquired absence of both cervix and uterus; Z90.49 Acquired absence of other specified parts of digestive tract; Z86.73 Personal history of transient ischemic attack (TIA), and cerebral infarction without residual deficits; Z82.3 Family history of stroke; Z79.01 Long term (current) use of anticoagulants; Z82.49 Family history of ischemic heart disease and other diseases of the circulatory system; Z95.9 Presence of cardiac and vascular implant and graft, unspecified; Z88.8 Allergy status to other drugs, medicaments and biological substances; Z88.5 Allergy status to narcotic agent; Z88.2 Allergy status to sulfonamides; Z88.0 Allergy status to penicillin; Z88.1 Allergy status to other antibiotic agents; Z98.890 Other specified postprocedural states; E83.39 Other disorders of phosphorus metabolism
CPT/HCPCS: 0241U; 36415; 71045; 80053; 80069; 82272; 82607; 82728; 82746; 82803; 83540; 83550; 83605; 83690; 83735; 83880; 84145; 84484; 85014; 85018; 85025; 87040; 92526; 92610; 93005; 93010; 94660; 94760; 94762; 96365; 96375; 97110; 97112; 97162; 97166; 97530; 99285-25; A9270; C1751; J0692; J0696; J0881; J7030; J7040; J7060